=== PATIENT | male | born 1970 | race Caucasian/White ===

== ENCOUNTER 2017-10-15 19:30 | Emergency (ER) | payer OTHER, SELFPAY ==
--- NOTE | 2017-10-15 19:30 | DT_ITS ---
This patient was seen during an EMR downtime October 13, 2017 - October 20, 2017. This patient may have a combination of paper and electronic documentation or all paper documentation. All documentation is viewable within the e-chart portion of [facility] for each patient visit.
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
== END 2017-10-15 21:45 | disposition home or self-care (01) ==
LOC: ED 10-16 15:19
PROVIDERS: Emergency Provider Emergency Medicine
DX: S09.90XA Unspecified injury of head, initial encounter (principal); S46.912A Strain of unspecified muscle, fascia and tendon at shoulder and upper arm level, left arm, initial encounter; V49.40XA Driver injured in collision with unspecified motor vehicles in traffic accident, initial encounter; Y93.89 Activity, other specified; Y92.410 Unspecified street and highway as the place of occurrence of the external cause; E11.9 Type 2 diabetes mellitus without complications; I25.2 Old myocardial infarction; Z79.4 Long term (current) use of insulin; Z79.84 Long term (current) use of oral hypoglycemic drugs; Z79.899 Other long term (current) drug therapy
CPT/HCPCS: 70450; 72125; 73030; 99283

== ENCOUNTER → 2023-09-26 | Outpatient (CLI) | payer OTHER, SELFPAY ==
[2023-09-26 12:10] LABS: Absolute Lymphocyte Count 1.24 X10^3/uL (0.83-4.51); Basophil# 0.04 X10^3/uL; Basophil% 0.7 % (0-1); Eosinophils% 1.7 % (0-5); Hematocrit 45.2 % (40-54); Hemoglobin 14.9 g/dL (13.0-16.5); Lymphocyte # 1.24 X10^3/ul (0.83-4.51); Lymphocyte % 20.8 % (19-41); Mean Corpuscular Hgb 28.6 pg (27.0-32.0); Mean Corpuscular Volume 86.8 fL (80-94); Mean Platelet Vol. 10.1 fl (6.2-12.0); Monocyte% 10.1 % (0-10); NRBC Flagged by Analyzer 0 % (0-5); Neutrophil # 3.95 X10^3/uL (2.7-7.7); Neutrophil % 66.4 % (47-70); Platelet Count 313 K/mm3 (150-450); RBC Distribution Width CV 12.7 % (11.6-14.6); Red Blood Count 5.21 M/mm3 (4.6-6.2)
[2023-09-26 13:09] LABS: Vitamin D,25 Hydroxy 36.2 ng/mL
[2023-09-26 13:13] LABS: AST(SGOT) 16 U/L (15-37); Alanine Aminotransfer ALT/SGPT 43 U/L (16-61); Albumin, Serum 3.9 g/dL (3.2-5.0); Alkaline Phosphatase 113 U/L (45-117); Anion Gap 5 (5-15); BUN 15 mg/dL (7-18); BUN/Creat Ratio 13.8 RATIO (10-20); Calcium,Total 9.8 mg/dL (8.5-10.1); Chloride 102 mmol/L (98-107); Cholesterol 197 mg/dL (200); Creatinine, Serum 1.09 mg/dL (0.70-1.30); EST Glomerular Filtration Rate 75 mL/min (>60); Est Glom Filt Rate - Afr Amer 90 mL/min (>60); Globulin 3.8 g/dL (2.2-4.2); Glucose 407 mg/dL (74-106); High Density Lipoprotein 40 mg/dL; Potassium 4.6 mmol/L (3.5-5.1); Protein, Total 7.7 g/dL (6.4-8.2); Sodium Level 135 mmol/L (136-145); Thyroid Stim Hormone (TSH) 1.32 uIU/mL (0.358-3.74); Triglycerides 226 mg/dL; Very Low Density Lipoprotein 45 mg/dL (5-40)
== END | disposition home or self-care (01) ==
PROVIDERS: Visit Provider Family Medicine
DX: E11.8 Type 2 diabetes mellitus with unspecified complications (principal)
CPT/HCPCS: 36415; 80053; 80061; 82306; 84443; 85025

== ENCOUNTER 2023-10-07 09:51 | Outpatient (RCR) | payer MEDICAID, SELFPAY ==
[2023-10-07 10:09] VITALS: BP 146/86; PULSE 87; RESP 18; TEMP 36.2; BMI 30.9
--- NOTE | 2023-10-07 11:08 | PCM.WC.HP ---
History of Present Illness Date of Service: 10/07/23 Progress of Wound: presents with chronic diabetic, neuropathic ulcerations to right heel and right hallux. present for months, unchanging. Denies any fever, chills, nausea, vomiting, chest pain, calf pain or shortness of breath. Patient has attempted no treatments and relates that he had a long history of poorly controlled type II diabetes with loss of sensation to his feet. No other complaints today. [facility] Social History Smoking Status: Never smoker ROS Constitutional Constitutional: Denies change in weight, chills or headache(s) Eyes Eyes: Denies acute decrease in peripheral vision, change in eye color or change in vision ENT HEENT: Denies bleeding gums, change in voice or epistaxis Cardiovascular Cardiovascular: Denies abdominal edema, abdominal pain or chest pain at rest Respiratory/Chest Respiratory/Chest: Denies change in phlegm color, chest congestion or dyspnea Gastrointestinal Gastrointestinal: Denies belching, bloating or constipation Genitourinary Genitourinary: Denies anuria, burning urination or difficulty with ejaculations Musculoskeletal Musculoskeletal: Denies atrophy, back pain or limited range of motion Vital Signs Vital Signs Vital Signs: 10/07/23 10:09 Temperature 97.2 F L Temperature Source Temporal Pulse Rate 87 Respiratory Rate 18 Blood Pressure 146/86 H Blood Pressure Mean 106 Blood Pressure Source Monitor Blood Pressure Position Semi-Fowlers Blood Pressure Location Left Arm Oxygen Delivery Method Room Air Weight Weight: 106.594 kg Body Mass Index (BMI) 30.9 Physical Exam Narrative Vascular: Dorsalis Pedis and Posterior Tibial Pulses 2/4 to bilateral feet. Atrophic skin changes noted. Neurologic: absent light touch/protective sensation to bilateral lower extremities. Dermatologic: Full thickness wound to subcutaneous tissue to right plantar hallux and heel with periowund callus. Pre/post debridement measurements documented in nursing notes. Wound demonstrates clean, bleeding/granular base with no acute signs of infection. Musculoskeletal: Right hallux 1st MPJ decreased dorsiflexion <5 degrees - this is a wound forming deformity. Muscular strength full. Debridement Note Debridement Note Post-Debridement Measurements and Additional Note: Post-Debridement Measurements/Treatment MARISOL - Nurse 1 - General Ulcer Assessment Start: 10/07/23 10:09 Freq: Status: Active Protocol: WC.LOWEXT Activity Type Activity Date Activity User E-sign Co-sign Detail Recorded Client Recorded Date Recorded By Document 10/07/23 10:09 KW wound center 10/07/23 10:31 KW 10/07/23 10:09 WC - Today's Visit Information Type of service Initial Visit Arrival Mode Ambulatory Patient Identification Verified (Name & Yes ) Finger Stick Blood Sugar(mg/dl) (if 213 indicated): Blood Sugar Stated by Patient Height and Weight Height 6 ft 1 in Weight 106.594 kg Weight in Pounds 235.0 lbs Weight Measurement Method Estimated by Patient Body Mass Index (BMI) 30.9 BMI Classification Obese BSA - Mark 2.30 Vital Signs Temperature (97.8 F-99.1 F) 97.2 F L Temperature Source Temporal Pulse Rate (60-100) 87 Pulse Location Monitor Respiratory Rate (12-18) 18 Respiratory rate source Observation Oxygen Delivery Method Room Air Blood Pressure (90/60-120/80) 146/86 H Blood Pressure Mean 106 Source Monitor Position Semi-Fowlers Blood Pressure Location Left Arm History Since Last Visit- (Skip if this is Patient's initial visit) Left Footwear Regular Shoe Right Footwear Regular Shoe Pain Scale: 0-10 Numeric Is Patient Pain Free? No RT FOOT -Description Sharp -Intensity 4 -Alleviating Factors/Interventions Medication, Inactivity/ Resting Lower Extremity Assessment/ Foot Assessment/ Toe Nail Assessment Right -Posterior Tibial Palpable Yes -Dorsalis Pedis Palpable Yes -Extremity Color Normal -Hair Growth on Legs Yes -Hair Growth on Toes No -Temperature of Extremity Cool -Capillary Refill Less than 3 Seconds -Thick Yes -Discolored Yes -Deformed Yes -Improper Length & Hygeine No Communication Assessment Preferred language [place] [employer] Required No Able to Read Yes Able to Write Yes Communication Tools None Caregiver Communication Skills No Impairment Impairment Right Hearing Abillity Normal Left Hearing Abillity Normal Visual Assistive Devices None Teaching Assessment Preferences Verbal,Written, Demonstration Barriers to Learning None Readiness To Learn Excellent Willingness to Engage in Self Management High Activies Readiness to Engage in Self Management High Activities Anxiety Level Calm Cooperation Cooperative Perception Coherent Interest in Health Problem Asks Questions Education Importance Acknowledges Need Does Patient Smoke tobacco or other Yes substances Smoking Status Never smoker Is Patient Diabetic Yes Functional Assessment Recent Decline in Ability to Perform Denies Any Declines Culture/Faith/Career Development Director Cultural/Faith Needs that may affect No Treatment Plan Would you allow our hospital tool and die repair to No meet you for the purpose of spiritual/ emotional support? Career Development Director to contact place of episcopalian No WC - Nurse 1 - General Ulcer Measurement Start: 10/07/23 10:09 Freq: Status: Active Protocol: Activity Type Activity Date Activity User E-sign Co-sign Detail Recorded Client Recorded Date Recorded By Document 10/07/23 10:31 KW wound center 10/07/23 10:36 KW 10/07/23 10:31 Wound Center Nurse 1 #2 RT HEEL -Current Size (cm) - Length 0.7 -Current Size (cm) - Width 0.8 -Current Size (cm) - Depth 0.4 -Total Square Cm 0.56 -Date of Last Picture (Recall this 10/07/23 field) -Undermining/Tunneling Yes -Undermining/Tunneling Starts (O'clock 9 ) -Undermining/Tunneling Ends (O'clock) 2 -Maximum Distance (cm) 0.2 -Exudate Amt Small -Exudate Type Serosanguineous -Wound Margin Thickened -Granulation Amt Large (67-100%) -Granulation Quality [place] -Texture (Lashell-wound Skin Appearance) Assessed,Callus -Moisture (Lashell-wound Skin Appearance) Assessed,Dry/ Scaly -Color (Lashell-wound Skin Appearance) Assessed -Temperature (Lashell-wound Skin No Abnormality Appearance) (Pt Warm) -Tenderness on Palpation (Lashell-wound No Skin Appearance) -Ulcer Cleansing Soap and Water -Foul Odor after Cleansing No -Anesthetic Used 5% Lidocaine Gel #1 RT GREAT TOE -Current Size (cm) - Length 0.4 -Current Size (cm) - Width 0.7 -Current Size (cm) - Depth 0.2 -Total Square Cm 0.28 -Date of Last Picture (Recall this 10/07/23 field) -Undermining/Tunneling No -Exudate Amt Small -Exudate Type Serosanguineous -Wound Margin Thickened -Granulation Amt Large (67-100%) -Granulation Quality [place] -Slough/Fibrin No -Texture (Lashell-wound Skin Appearance) Assessed,Callus -Moisture (Lashell-wound Skin Appearance) Assessed -Color (Lashell-wound Skin Appearance) Assessed -Temperature (Lashell-wound Skin No Abnormality Appearance) (Pt Warm) -Tenderness on Palpation (Lashell-wound No Skin Appearance) -Ulcer Cleansing Soap and Water -Foul Odor after Cleansing No -Anesthetic Used 5% Lidocaine Gel Right Calf (cm) 43 Right Ankle (cm) 23.1 WC - Nurse 2 - General Ulcer CM Notes Start: 10/07/23 10:09 Freq: Status: Active Protocol: Activity Type Activity Date Activity User E-sign Co-sign Detail Recorded Client Recorded Date Recorded By Document 10/07/23 10:57 DS [id number] 10/07/23 11:07 DS 10/07/23 10:57 Wound Center Nurse 2 #2 RT HEEL -Time 10:58 -Correct Patient Yes -Correct Side, Site, Position Yes -Correct Procedure Yes -Procedure Performed Yes -Type of Procedure Debridement -Clinical Debridement Subcutaneous -Tissue Removed Subcutaneous -Post Debridement (cm) - Length 1.4 -Post Debridement (cm) - Width 1.5 -Post Debridement (cm) - Depth 0.4 -Total Square (Post) (cm) 2.10 -Area of Debridement (cm) - Length 1.4 -Area of Debridement (cm) - Width 1.5 -Total Square (Area) (cm) 2.10 -Tunneling No -Undermining/Tunneling No -Circular Undermining No -Wound/Ulcer Outcome Not Healed -Ulcer Cleansing Rinsed/ Irrigated with Saline -Bleeding Controlled with Pressure -Treatment Response Procedure Tolerated Well -Debridement - Subq, 1st 20sq cm No #1 RT GREAT TOE -Time 10:57 -Correct Patient Yes -Correct Side, Site, Position Yes -Correct Procedure Yes -Procedure Performed Yes -Type of Procedure Debridement -Clinical Debridement Subcutaneous -Tissue Removed Subcutaneous -Post Debridement (cm) - Length 0.8 -Post Debridement (cm) - Width 0.8 -Post Debridement (cm) - Depth 0.2 -Total Square (Post) (cm) 0.64 -Area of Debridement (cm) - Length 0.8 -Area of Debridement (cm) - Width 0.8 -Total Square (Area) (cm) 0.64 -Tunneling No -Undermining/Tunneling No -Circular Undermining No -Wound/Ulcer Outcome Not Healed -Ulcer Cleansing Rinsed/ Irrigated with Saline -Bleeding Controlled with Pressure -Treatment Response Procedure Tolerated Well -Debridement - Subq, 1st 20sq cm Yes Pain Scale: 0-10 Numeric Is Patient Pain Free? Yes Assessment/Plan Assessment/Plan (1) Type 2 diabetes mellitus with diabetic polyneuropathy: CODE(S): E11.42 - Type 2 diabetes mellitus with diabetic polyneuropathy QUALIFIERS: Diabetes mellitus terminal carman insulin use: with terminal carman use Qualified Code(s): E11.42 - Type 2 diabetes mellitus with diabetic polyneuropathy; Z79.4 - group home (current) use of insulin PLAN: Exam performed Patient awaiting arterial studies on of next week discussed tight blood glucose regulation Today right foot wounds x2 were excisionally debrided down to and including level of subcutaneous tissue using a #15 blade without incident of all non-viable tissue. No anesthesia due to neuropathy. Hemostasis obtained with light compression. Patient tolerated procedure well. Pre/post debridement measurements documented in nursing notes. dressed with silver alginate/DSD appled total contact cast follow up in 1 week (2) Hallux rigidus, right foot: CODE(S): M20.21 - Hallux rigidus, right foot (3) Non-pressure chronic ulcer of other part of right foot with fat layer exposed: CODE(S): L97.512 - Non-pressure chronic ulcer of other part of right foot with fat layer exposed
--- NOTE | 2023-10-09 12:06 | WC ---
10/07/2023 (I) RIGHT GREAT TOE
== END 2023-10-10 23:59 | disposition home or self-care (01) ==
LOC: WC 09:51
PROVIDERS: Referring Provider Podiatrist; Visit Provider Podiatrist
DX: E11.42 Type 2 diabetes mellitus with diabetic polyneuropathy (principal); E11.621 Type 2 diabetes mellitus with foot ulcer; L97.512 Non-pressure chronic ulcer of other part of right foot with fat layer exposed; L97.412 Non-pressure chronic ulcer of right heel and midfoot with fat layer exposed; Z79.4 Long term (current) use of insulin; M20.21 Hallux rigidus, right foot
CPT/HCPCS: 11042; 99213; G0463

== ENCOUNTER → 2023-10-14 | Outpatient (CLI) | payer MEDICAID, SELFPAY ==
--- NOTE | 2023-10-14 11:21 | PN.PCM_ITS ---
History of Present Illness Date of Service: 10/14/23 Progress of Wound: presents with chronic diabetic, neuropathic ulcerations to right heel and right hallux. present for months, unchanging. Denies any fever, chills, nausea, vomiting, chest pain, calf pain or shortness of breath. Patient has attempted no treatments and relates that he had a long history of poorly controlled type II diabetes with loss of sensation to his feet. No other complaints today. Physical Exam Narrative Vascular: Dorsalis Pedis and Posterior Tibial Pulses 2/4 to bilateral feet. Atrophic skin changes noted. Neurologic: absent light touch/protective sensation to bilateral lower extremities. Dermatologic: Full thickness wound to subcutaneous tissue to right plantar hallux and heel with periowund callus. Pre/post debridement measurements documented in nursing notes. Wound demonstrates clean, bleeding/granular base with no acute signs of infection. Musculoskeletal: Right hallux 1st MPJ decreased dorsiflexion <5 degrees - this is a wound forming deformity. Muscular strength full. Assessment/Plan Assessment/Plan (1) Type 2 diabetes mellitus with diabetic polyneuropathy: CODE(S): E11.42 - Type 2 diabetes mellitus with diabetic polyneuropathy QUALIFIERS: Diabetes mellitus termite control representative insulin use: with chcf use Qualified Code(s): E11.42 - Type 2 diabetes mellitus with diabetic polyneuropathy; Z79.4 - nursing home (current) use of insulin PLAN: Exam performed Patient awaiting arterial studies today discussed tight blood glucose regulation Today right foot wounds x2 were excisionally debrided down to and including level of subcutaneous tissue using a #15 blade without incident of all non- viable tissue. No anesthesia due to neuropathy. Hemostasis obtained with light compression. Patient tolerated procedure well. Pre/post debridement measurements documented in nursing notes. dressed with silver alginate/DSD await total contact casting 1 week due to arterial studies offload right foot with surgical shoe follow up in 1 week (2) Hallux rigidus, right foot: CODE(S): M20.21 - Hallux rigidus, right foot (3) Non-pressure chronic ulcer of other part of right foot with fat layer exposed: CODE(S): L97.512 - Non-pressure chronic ulcer of other part of right foot with fat layer exposed
--- NOTE | 2023-10-14 14:07 | ART_ITS ---
Reason For Study: PVD Procedure A bilateral lower extremity continuous wave Doppler with analog waveform analysis,segmental pressures,and ankle brachial indexes without exercise. Left Segmental Pressures Left brachial= 132mmHg. Left posterior tibial artery = 175mmHg. Left dorsalis pedis artery = 179mmHg. Left digit = 158 mmHg. The left dorsalis pedis waveforms are triphasic. The left posterior tibial artery waveforms are triphasic. Right Segmental Pressures Right brachial= 129mmHg. Right posterior tibial artery = 194mmHg. Right dorsalis pedis artery = 175mmHg. Right digit = 202 mmHg. The right dorsalis pedis waveforms are triphasic. The right posterior tibial artery waveforms are triphasic. Indices The right ankle brachial index by the dorsalis pedis is 1.33. The right ankle brachial index by the posterior tibial artery is 1.47. The right digital-brachial index is 1.53. The left ankle brachial index by the dorsalis pedis is 1.36. The left ankle brachial index by the posterior tibial artery is 1.33. The left digital-brachial index is 1.2. VL/Lower Ext Art Exam w/o Exercis Interpretation Summary Right LE 1.47, may be artificially elevated. TBI and Doppler/PVR waveforms of the right leg normal at rest. Left LE 1.36, normal. TBI and Doppler/PVR waveforms of the left leg normal at rest. Ordering Physician: Alessandro Carreno Referring Physician: ALESSANDRO CARRENO DPM Performed By: Dayne Spencer RVDebora
== END | disposition home or self-care (01) ==
PROVIDERS: PCP Family Medicine; Referring Provider Podiatrist; Visit Provider Podiatrist
DX: I73.9 Peripheral vascular disease, unspecified (principal)
CPT/HCPCS: 93923

== ENCOUNTER 2023-11-04 10:45 | Outpatient (RCR) | payer MEDICAID, SELFPAY ==
[2023-10-11 01:25] VITALS: BP 146/86; PULSE 87; RESP 18; TEMP 36.2; BMI 30.9
[2023-10-14 10:57] VITALS: BP 130/90; PULSE 92; RESP 18; TEMP 36.2; BMI 30.9
[2023-10-21 11:11] VITALS: BP 149/82; PULSE 85; RESP 18; TEMP 36.6; BMI 30.9
--- NOTE | 2023-10-21 11:38 | PN.PCM_ITS ---
History of Present Illness Date of Service: 10/21/23 Progress of Wound: presents with chronic diabetic, neuropathic ulcerations to right heel and right hallux. present for months, unchanging. Denies any fever, chills, nausea, vomiting, chest pain, calf pain or shortness of breath. Patient has attempted no treatments and relates that he had a long history of poorly controlled type II diabetes with loss of sensation to his feet. No other complaints today. Patient current notes improved blood sugar control today and has been compliant with wound care treatments. Objective Data Objective Data Vital Signs: Vital Signs Temp Pulse Resp BP O2 Del Method 97.8 F 85 18 149/82 H Room Air 10/21/23 11:11 10/21/23 11:11 10/21/23 11:11 10/21/23 11:11 10/14/23 10:57 Oxygen Delivery Method Room Air Weight: 106.594 kg Body Mass Index (BMI) 30.9 Physical Exam Narrative Vascular: Dorsalis Pedis and Posterior Tibial Pulses 2/4 to bilateral feet. Atrophic skin changes noted. Neurologic: absent light touch/protective sensation to bilateral lower extremities. Dermatologic: Full thickness wound to subcutaneous tissue to right plantar hallux and heel with periowund callus. Pre/post debridement measurements documented in nursing notes. Wound demonstrates clean, bleeding/granular base with no acute signs of infection. Musculoskeletal: Right hallux 1st MPJ decreased dorsiflexion <5 degrees - this is a wound forming deformity. Muscular strength full. Debridement Note Debridement Note Post-Debridement Measurements and Additional Note: Post-Debridement Measurements/Treatment WC - Nurse 1 - General Ulcer Assessment Start: 10/14/23 10:56 Freq: Status: Active Protocol: [email or web address] Activity Type Activity Date Activity User E-sign Co-sign Detail Recorded Client Recorded Date Recorded By Document 10/14/23 10:57 KW wound center 10/14/23 11:08 KW Document 10/21/23 11:11 RB wound 10/21/23 11:14 RB 10/14/23 10/21/23 10:57 11:11 - Today's Visit Information Type of service Follow-up Visit Follow-up Visit (Physician/ROLLER HELPER (Physician/ROLLER HELPER ) ) Arrival Mode Ambulatory Ambulatory Transfer Assistance None Patient Identification Verified (Name & Yes Yes ) Patient Requires Transmission-Based No Precautions Height and Weight Body Mass Index (BMI) 30.9 30.9 BMI Classification Obese Obese Vital Signs Temperature (97.8 F-99.1 F) 97.1 F L 97.8 F Temperature Source Temporal Temporal Pulse Rate (60-100) 92 85 Pulse Location Monitor Monitor Respiratory Rate (12-18) 18 18 Respiratory rate source Observation Observation Oxygen Delivery Method Room Air Blood Pressure (90/60-120/80) 130/90 H 149/82 H Blood Pressure Mean (mm Hg) 103 104 Source Monitor Monitor Position Semi-Fowlers Semi-Fowlers Blood Pressure Location Left Arm Left Arm History Since Last Visit- (Skip if this is Patient's initial visit) Have you changed medications since your No No last visit? Any new allergies or adverse reactions No No Had a fall/change in ADL's that may No No increase risk of falls Signs or symptoms of abuse and/or No No neglect since last visit Have you been in the hospital since your No No last visit? Has dressing in place as prescribed Yes Yes Has compression in place as prescribed Yes Has offloadiing in place as prescribed Yes No Experienced any changes in pain level or No No management Left Footwear Regular Shoe Right Footwear Total Contact Cast Pain Scale: 0-10 Numeric Is Patient Pain Free? Yes No Headache -Description Aching -Intensity 5 -Duration (hours) Acute -Pain Behavior Irritability -Pain Aggravating Factors ADL's -Alleviating Factors/Interventions Medication -Effectiveness of Alleviating Factor/ Minimally Intervention effective WC - Nurse 1 - General Ulcer Measurement Start: 10/14/23 10:56 Freq: Status: Active Protocol: Activity Type Activity Date Activity User E-sign Co-sign Detail Recorded Client Recorded Date Recorded By Document 10/14/23 10:57 KW wound center 10/14/23 11:08 KW Document 10/21/23 11:11 RB wound 10/21/23 11:14 RB 10/14/23 10/21/23 10:57 11:11 Wound Center Nurse 1 #2 RT HEEL -Combined with other wound No -Current Size (cm) - Length 0.7 0.5 -Current Size (cm) - Width 0.7 0.5 -Current Size (cm) - Depth 0.3 0.4 -Total Square Cm 0.49 0.25 -Tunneling No -Undermining/Tunneling No -Circular Undermining No -Exudate Amt Medium Medium -Exudate Type Serosanguineous Serosanguineous -Wound Margin Thickened & Thickened & Rolled Under Rolled Under -Granulation Amt Medium (34-66%) Medium (34-66%) -Granulation Quality Jeannette Jeannette -Slough/Fibrin Yes -Necrosis Amt Medium (34-66%) -Necrotic Tissue Type Adherent Slough -Structure Exposed N/A -Texture (Lashell-wound Skin Appearance) Assessed Assessed -Moisture (Lashell-wound Skin Appearance) Assessed Assessed -Color (Lashell-wound Skin Appearance) Assessed Assessed -Temperature (Lashell-wound Skin No Abnormality No Abnormality Appearance) (Pt Warm) (Pt Warm) -Tenderness on Palpation (Lashell-wound No No Skin Appearance) -Ulcer Cleansing Soap and Water Wound Cleanser -Foul Odor after Cleansing No -Anesthetic Used 5% Lidocaine 5% Lidocaine Gel Gel #1 RT GREAT TOE -Combined with other wound No -Current Size (cm) - Length 0.3 0.1 -Current Size (cm) - Width 0.4 0.1 -Current Size (cm) - Depth 0.2 0.1 -Total Square Cm 0.12 0.01 -Tunneling No -Undermining/Tunneling No -Circular Undermining No -Exudate Amt Medium -Exudate Type Serosanguineous -Wound Margin Thickened & Distinct, Rolled Under Outline Attached -Granulation Amt Medium (34-66%) Medium (34-66%) -Granulation Quality Jeannette Jeannette -Slough/Fibrin Yes -Necrosis Amt Medium (34-66%) -Necrotic Tissue Type Adherent Slough -Structure Exposed N/A -Texture (Lashell-wound Skin Appearance) Assessed Assessed,Callus -Moisture (Lashell-wound Skin Appearance) Assessed Assessed -Color (Lashell-wound Skin Appearance) Assessed Assessed -Temperature (Lashell-wound Skin No Abnormality No Abnormality Appearance) (Pt Warm) (Pt Warm) -Tenderness on Palpation (Lashell-wound No No Skin Appearance) -Ulcer Cleansing Soap and Water Wound Cleanser -Foul Odor after Cleansing No No -Anesthetic Used 5% Lidocaine 5% Lidocaine Gel Gel Lower Limb Edema Present Yes Right Calf (cm) 43 Right Ankle (cm) 23.5 WC - Nurse 2 - General Ulcer CM Notes Start: 10/14/23 10:56 Freq: Status: Active Protocol: Activity Type Activity Date Activity User E-sign Co-sign Detail Recorded Client Recorded Date Recorded By Document 10/14/23 11:17 [id number] [id number] 10/14/23 11:20 JF Document 10/21/23 11:23 [id number] [id number] 10/21/23 11:28 JF 10/14/23 10/21/23 11:17 11:23 Wound Center Nurse 2 #2 RT HEEL -Time 11:17 11:26 -Correct Patient Yes Yes -Correct Side, Site, Position Yes Yes -Correct Procedure Yes Yes -Procedure Performed Yes Yes -Type of Procedure Debridement Debridement -Clinical Debridement Subcutaneous Subcutaneous -Tissue Removed Subcutaneous Subcutaneous -Post Debridement (cm) - Length 0.9 0.5 -Post Debridement (cm) - Width 0.9 0.6 -Post Debridement (cm) - Depth 0.2 0.2 -Total Square (Post) (cm) 0.81 0.30 -Area of Debridement (cm) - Length 0.9 0.5 -Area of Debridement (cm) - Width 0.9 0.6 -Total Square (Area) (cm) 0.81 0.30 -Tunneling No No -Undermining/Tunneling No No -Circular Undermining No No -Wound/Ulcer Outcome Not Healed Not Healed -Ulcer Cleansing Rinsed/ Rinsed/ Irrigated with Irrigated with Saline Saline -Foul Odor after Cleansing No No -Bioengineered Tissue No No -Bleeding Controlled with Pressure Pressure -Treatment Response Procedure Procedure Tolerated Well Tolerated Well -Offloading Yes Yes -Type of Offloading Surgical Shoe Surgical Shoe -Debridement - Subq, 1st 20sq cm Yes No #1 RT GREAT TOE -Time 11:18 11:26 -Correct Patient Yes Yes -Correct Side, Site, Position Yes Yes -Correct Procedure Yes Yes -Procedure Performed Yes Yes -Type of Procedure Debridement Debridement -Clinical Debridement Subcutaneous Subcutaneous -Tissue Removed Subcutaneous Subcutaneous -Post Debridement (cm) - Length 0.2 0.2 -Post Debridement (cm) - Width 0.5 0.5 -Post Debridement (cm) - Depth 0.1 0.1 -Total Square (Post) (cm) 0.10 0.10 -Area of Debridement (cm) - Length 0.2 0.2 -Area of Debridement (cm) - Width 0.5 0.5 -Total Square (Area) (cm) 0.10 0.10 -Tunneling No No -Undermining/Tunneling No No -Circular Undermining No No -Wound/Ulcer Outcome Not Healed Not Healed -Ulcer Cleansing Rinsed/ Rinsed/ Irrigated with Irrigated with Saline Saline -Foul Odor after Cleansing No No -Bioengineered Tissue No No -Bleeding Controlled with Pressure Pressure -Treatment Response Procedure Procedure Tolerated Well Tolerated Well -Offloading Yes Yes -Type of Offloading Surgical Shoe Surgical Shoe -Debridement - Subq, 1st 20sq cm No Yes Pain Scale: 0-10 Numeric Is Patient Pain Free? Yes Yes - Nurse 3 - General Ulcer D/C NN Start: 10/14/23 10:56 Freq: Status: Active Protocol: Activity Type Activity Date Activity User E-sign Co-sign Detail Recorded Client Recorded Date Recorded By Document 10/14/23 11:48 KW wound center 10/14/23 11:49 10/14/23 11:48 Wound Care Center Nurse 3 #2 RT HEEL -Ulcer Cleansing Rinsed/ Irrigated with Saline -Primary Dressing Applied Silvercel -Primary Dressing Covered/Secured with Dry Gauze & Roll Gauze, Secured with Tape -Silvercel 1 #1 RT GREAT TOE -Primary Dressing Covered/Secured with Dry Gauze Right -Tubular Bandage Double Layer -Size of Tubigrip Used Size E -Size E ($) 2 Pain Scale: 0-10 Numeric Is Patient Pain Free? Yes WC - Visit Discharge Discharge Condition Stable Ambulatory Status Ambulatory Transportation Private Auto Medication Reconcilliation completed & No provided to patient/care provider Clinical Summary of Care Provided Yes Assessment/Plan Assessment/Plan (1) Type 2 diabetes mellitus with diabetic polyneuropathy: CODE(S): E11.42 - Type 2 diabetes mellitus with diabetic polyneuropathy QUALIFIERS: Diabetes mellitus moth exterminator insulin use: with moth exterminator use Qualified Code(s): E11.42 - Type 2 diabetes mellitus with diabetic polyneuropathy; Z79.4 - long term care social worker (current) use of insulin PLAN: Exam performed Blood sugar control improved. Wound significantly improved today. Today right foot wounds x2 were excisionally debrided down to and including level of subcutaneous tissue using a #15 blade without incident of all non- viable tissue. No anesthesia due to neuropathy. Hemostasis obtained with light compression. Patient tolerated procedure well. Pre/post debridement measurements documented in nursing notes. dressed with silver alginate/DSD Arterial studies demonstrate calcified vessels with no evidence of arterial occlusive disease. Discussed return to total contact casting. Patient wishes to defer and wishes to continue with surgical shoe on right. I discussed that this may lead to delays in wound healing but about high risk of a life or limb threatening infection. Patient understands. follow up in 1 week (2) Hallux rigidus, right foot: CODE(S): M20.21 - Hallux rigidus, right foot (3) Non-pressure chronic ulcer of other part of right foot with fat layer exposed: CODE(S): L97.512 - Non-pressure chronic ulcer of other part of right foot with fat layer exposed
[2023-10-28 11:00] VITALS: BP 139/88; PULSE 88; RESP 18; TEMP 36.1; BMI 30.9
--- NOTE | 2023-10-28 11:38 | PCM.WC.PN ---
History of Present Illness Date of Service: 10/28/23 Progress of Wound: presents with chronic diabetic, neuropathic ulcerations to right heel and right hallux. present for months, unchanging. Denies any fever, chills, nausea, vomiting, chest pain, calf pain or shortness of breath. Patient has attempted no treatments and relates that he had a long history of poorly controlled type II diabetes with loss of sensation to his feet. No other complaints today. Patient current notes improved blood sugar control today and has been compliant with wound care treatments. Objective Data Objective Data Vital Signs: Vital Signs Temp Pulse Resp BP O2 Del Method 97 F L 88 18 139/88 H Room Air 10/28/23 11:00 10/28/23 11:00 10/28/23 11:00 10/28/23 11:00 10/14/23 10:57 Oxygen Delivery Method Room Air Weight: 106.594 kg Body Mass Index (BMI) 30.9 Physical Exam Narrative Vascular: Dorsalis Pedis and Posterior Tibial Pulses 2/4 to bilateral feet. Atrophic skin changes noted. Neurologic: absent light touch/protective sensation to bilateral lower extremities. Dermatologic: Full thickness wound to subcutaneous tissue to right plantar hallux and heel with periowund callus. Pre/post debridement measurements documented in nursing notes. Wound demonstrates clean, bleeding/granular base with no acute signs of infection. Musculoskeletal: Right hallux 1st MPJ decreased dorsiflexion <5 degrees - this is a wound forming deformity. Muscular strength full. Debridement Note Debridement Note Post-Debridement Measurements and Additional Note: Post-Debridement Measurements/Treatment WC - Nurse 1 - General Ulcer Assessment Start: 10/14/23 10:56 Freq: Status: Active Protocol: [email or web address] Activity Type Activity Date Activity User E-sign Co-sign Detail Recorded Client Recorded Date Recorded By Document 10/14/23 10:57 KW wound center 10/14/23 11:08 KW Document 10/21/23 11:11 RB wound 10/21/23 11:14 RB Document 10/28/23 11:00 RB wound 10/28/23 11:02 RB 10/14/23 10/21/23 10/28/23 10:57 11:11 11:00 WC - Today's Visit Information Type of service Follow-up Visit Follow-up Visit Follow-up Visit (Physician/SUPERINTENDENT COMMISSARY (Physician/SUPERINTENDENT COMMISSARY (Physician/SUPERINTENDENT COMMISSARY ) ) ) Arrival Mode Ambulatory Ambulatory Ambulatory Transfer Assistance None None Patient Identification Verified (Name & Yes Yes Yes ) Patient Requires Transmission-Based No No Precautions Height and Weight Body Mass Index (BMI) 30.9 30.9 30.9 BMI Classification Obese Obese Obese Vital Signs Temperature (97.8 F-99.1 F) 97.1 F L 97.8 F 97 F L Temperature Source Temporal Temporal Temporal Pulse Rate (60-100) 92 85 88 Pulse Location Monitor Monitor Monitor Respiratory Rate (12-18) 18 18 18 Respiratory rate source Observation Observation Observation Oxygen Delivery Method Room Air Blood Pressure (90/60-120/80) 130/90 H 149/82 H 139/88 H Blood Pressure Mean (mm Hg) 103 104 105 Source Monitor Monitor Monitor Position Semi-Fowlers Semi-Fowlers Semi-Fowlers Blood Pressure Location Left Arm Left Arm Left Arm History Since Last Visit- (Skip if this is Patient's initial visit) Have you changed medications since your No No No last visit? Any new allergies or adverse reactions No No No Had a fall/change in ADL's that may No No No increase risk of falls Signs or symptoms of abuse and/or No No No neglect since last visit Have you been in the hospital since your No No No last visit? Has dressing in place as prescribed Yes Yes Yes Has compression in place as prescribed Yes Yes Has offloadiing in place as prescribed Yes No No Experienced any changes in pain level or No No No management Left Footwear Regular Shoe Right Footwear Total Contact Cast Pain Scale: 0-10 Numeric Is Patient Pain Free? Yes No Yes Headache -Description Aching -Intensity 5 -Duration (hours) Acute -Pain Behavior Irritability -Pain Aggravating Factors ADL's -Alleviating Factors/Interventions Medication -Effectiveness of Alleviating Factor/ Minimally Intervention effective WC - Nurse 1 - General Ulcer Measurement Start: 10/14/23 10:56 Freq: Status: Active Protocol: Activity Type Activity Date Activity User E-sign Co-sign Detail Recorded Client Recorded Date Recorded By Document 10/14/23 10:57 KW wound center 10/14/23 11:08 KW Document 10/21/23 11:11 RB wound 10/21/23 11:14 RB Document 10/28/23 11:00 RB wound 10/28/23 11:02 RB 10/14/23 10/21/23 10/28/23 10:57 11:11 11:00 Wound Center Nurse 1 #2 RT HEEL -Combined with other wound No No -Current Size (cm) - Length 0.7 0.5 0.4 -Current Size (cm) - Width 0.7 0.5 0.4 -Current Size (cm) - Depth 0.3 0.4 0.3 -Total Square Cm 0.49 0.25 0.16 -Tunneling No No -Undermining/Tunneling No No -Circular Undermining No No -Exudate Amt Medium Medium Medium -Exudate Type Serosanguineous Serosanguineous Serosanguineous -Wound Margin Thickened & Thickened & Distinct, Rolled Under Rolled Under Outline Attached -Granulation Amt Medium (34-66%) Medium (34-66%) Medium (34-66%) -Granulation Quality Holly Holly Holly -Slough/Fibrin Yes Yes -Necrosis Amt Medium (34-66%) Medium (34-66%) -Necrotic Tissue Type Adherent Slough Adherent Slough -Structure Exposed N/A N/A -Texture (Lashell-wound Skin Appearance) Assessed Assessed Assessed,Callus -Moisture (Lashell-wound Skin Appearance) Assessed Assessed Assessed -Color (Lashell-wound Skin Appearance) Assessed Assessed Assessed -Temperature (Lashell-wound Skin No Abnormality No Abnormality No Abnormality Appearance) (Pt Warm) (Pt Warm) (Pt Warm) -Tenderness on Palpation (Lashell-wound No No No Skin Appearance) -Ulcer Cleansing Soap and Water Wound Cleanser Wound Cleanser -Foul Odor after Cleansing No No -Anesthetic Used 5% Lidocaine 5% Lidocaine 5% Lidocaine Gel Gel Gel #1 RT GREAT TOE -Combined with other wound No No -Current Size (cm) - Length 0.3 0.1 0.1 -Current Size (cm) - Width 0.4 0.1 0.1 -Current Size (cm) - Depth 0.2 0.1 0.1 -Total Square Cm 0.12 0.01 0.01 -Tunneling No No -Undermining/Tunneling No No -Circular Undermining No No -Exudate Amt Medium Small -Exudate Type Serosanguineous Serosanguineous -Wound Margin Thickened & Distinct, Thickened Rolled Under Outline Attached -Granulation Amt Medium (34-66%) Medium (34-66%) Medium (34-66%) -Granulation Quality Holly Holly Holly -Slough/Fibrin Yes Yes -Necrosis Amt Medium (34-66%) Medium (34-66%) -Necrotic Tissue Type Adherent Slough Adherent Slough -Structure Exposed N/A N/A -Texture (Lashell-wound Skin Appearance) Assessed Assessed,Callus Assessed,Callus -Moisture (Lashell-wound Skin Appearance) Assessed Assessed Assessed -Color (Lashell-wound Skin Appearance) Assessed Assessed Assessed -Temperature (Lashell-wound Skin No Abnormality No Abnormality No Abnormality Appearance) (Pt Warm) (Pt Warm) (Pt Warm) -Tenderness on Palpation (Lashell-wound No No No Skin Appearance) -Ulcer Cleansing Soap and Water Wound Cleanser Wound Cleanser -Foul Odor after Cleansing No No No -Anesthetic Used 5% Lidocaine 5% Lidocaine 5% Lidocaine Gel Gel Gel Lower Limb Edema Present Yes Yes Right Calf (cm) 43 42 Right Ankle (cm) 23.5 23 WC - Nurse 2 - General Ulcer CM Notes Start: 10/14/23 10:56 Freq: Status: Active Protocol: Activity Type Activity Date Activity User E-sign Co-sign Detail Recorded Client Recorded Date Recorded By Document 10/14/23 11:17 [id number] [id number] 10/14/23 11:20 Document 10/21/23 11:23 [id number] 10/21/23 11:28 Document 10/28/23 11:03 [id number] 10/28/23 11:07 10/14/23 10/21/23 10/28/23 11:17 11:23 11:03 Wound Center Nurse 2 #2 RT HEEL -Time 11:17 11:26 11:04 -Correct Patient Yes Yes Yes -Correct Side, Site, Position Yes Yes Yes -Correct Procedure Yes Yes Yes -Procedure Performed Yes Yes Yes -Type of Procedure Debridement Debridement Debridement -Clinical Debridement Subcutaneous Subcutaneous Subcutaneous -Tissue Removed Subcutaneous Subcutaneous Subcutaneous -Post Debridement (cm) - Length 0.9 0.5 0.5 -Post Debridement (cm) - Width 0.9 0.6 0.4 -Post Debridement (cm) - Depth 0.2 0.2 0.1 -Total Square (Post) (cm) 0.81 0.30 0.20 -Area of Debridement (cm) - Length 0.9 0.5 0.5 -Area of Debridement (cm) - Width 0.9 0.6 0.4 -Total Square (Area) (cm) 0.81 0.30 0.20 -Tunneling No No No -Undermining/Tunneling No No No -Circular Undermining No No No -Wound/Ulcer Outcome Not Healed Not Healed Not Healed -Ulcer Cleansing Rinsed/ Rinsed/ Rinsed/ Irrigated with Irrigated with Irrigated with Saline Saline Saline -Foul Odor after Cleansing No No No -Bioengineered Tissue No No No -Bleeding Controlled with Pressure Pressure Pressure -Treatment Response Procedure Procedure Procedure Tolerated Well Tolerated Well Tolerated Well -Offloading Yes Yes Yes -Type of Offloading Surgical Shoe Surgical Shoe Total Contact Cast (TCC) - Right ($) -Debridement - Subq, 1st 20sq cm Yes No No #1 RT GREAT TOE -Time 11:18 11:26 11:04 -Correct Patient Yes Yes Yes -Correct Side, Site, Position Yes Yes Yes -Correct Procedure Yes Yes Yes -Procedure Performed Yes Yes Yes -Type of Procedure Debridement Debridement Debridement -Clinical Debridement Subcutaneous Subcutaneous Subcutaneous -Tissue Removed Subcutaneous Subcutaneous Subcutaneous -Post Debridement (cm) - Length 0.2 0.2 0.2 -Post Debridement (cm) - Width 0.5 0.5 0.6 -Post Debridement (cm) - Depth 0.1 0.1 0.1 -Total Square (Post) (cm) 0.10 0.10 0.12 -Area of Debridement (cm) - Length 0.2 0.2 0.2 -Area of Debridement (cm) - Width 0.5 0.5 0.6 -Total Square (Area) (cm) 0.10 0.10 0.12 -Tunneling No No No -Undermining/Tunneling No No No -Circular Undermining No No No -Wound/Ulcer Outcome Not Healed Not Healed Not Healed -Ulcer Cleansing Rinsed/ Rinsed/ Rinsed/ Irrigated with Irrigated with Irrigated with Saline Saline Saline -Foul Odor after Cleansing No No No -Bioengineered Tissue No No No -Bleeding Controlled with Pressure Pressure Pressure -Treatment Response Procedure Procedure Procedure Tolerated Well Tolerated Well Tolerated Well -Offloading Yes Yes Yes -Type of Offloading Surgical Shoe Surgical Shoe Total Contact Cast (TCC) - Right ($) -Debridement - Subq, 1st 20sq cm No Yes Yes Pain Scale: 0-10 Numeric Is Patient Pain Free? Yes Yes Yes WC - Nurse 3 - General Ulcer D/C NN Start: 10/14/23 10:56 Freq: Status: Active Protocol: Activity Type Activity Date Activity User E-sign Co-sign Detail Recorded Client Recorded Date Recorded By Document 10/14/23 11:48 KW wound center 10/14/23 11:49 KW Document 10/21/23 11:40 [id number] 10/21/23 11:41 JF Document 10/28/23 11:13 KW g 10/28/23 11:14 KW 10/14/23 10/21/23 10/28/23 11:48 11:40 11:13 Wound Care Center Nurse 3 #2 RT HEEL -Ulcer Cleansing Rinsed/ Rinsed/ Irrigated with Irrigated with Saline Saline -Foul Odor after Cleansing No -Primary Dressing Applied Silvercel Silvercel Silvercel -Primary Dressing Covered/Secured with Dry Gauze & Dry Gauze, Dry Gauze Roll Gauze, Secured with Secured with Tape Tape -Silvercel 1 1 1 #1 RT GREAT TOE -Ulcer Cleansing Rinsed/ Irrigated with Saline -Foul Odor after Cleansing No -Primary Dressing Applied Silvercel -Primary Dressing Covered/Secured with Dry Gauze Dry Gauze, Dry Gauze Secured with Tape -Silvercel 0 Right -Tubular Bandage Double Layer Double Layer -Size of Tubigrip Used Size E Size D -Size D ($) 2 -Size E ($) 2 Pain Scale: 0-10 Numeric Is Patient Pain Free? Yes Yes Yes WC - Visit Discharge Discharge Condition Stable Stable Stable Ambulatory Status Ambulatory Ambulatory Ambulatory Transportation Private Auto Private Auto Private Auto Medication Reconcilliation completed & No Yes No provided to patient/care provider Clinical Summary of Care Provided Yes Yes Yes Assessment/Plan Assessment/Plan (1) Type 2 diabetes mellitus with diabetic polyneuropathy: CODE(S): E11.42 - Type 2 diabetes mellitus with diabetic polyneuropathy QUALIFIERS: Diabetes mellitus technician terminal and repeater insulin use: with technician terminal and repeater use Qualified Code(s): E11.42 - Type 2 diabetes mellitus with diabetic polyneuropathy; Z79.4 - continuous churn buttermaker (current) use of insulin PLAN: Exam performed Blood sugar control improved. Wound significantly improved today. Today right foot wounds x2 were excisionally debrided down to and including level of subcutaneous tissue using a #15 blade without incident of all non-viable tissue. No anesthesia due to neuropathy. Hemostasis obtained with light compression. Patient tolerated procedure well. Pre/post debridement measurements documented in nursing notes. dressed with silver alginate/DSD Arterial studies demonstrate calcified vessels with no evidence of arterial occlusive disease. Today a total contact cast was applied follow up in 1 week (2) Hallux rigidus, right foot: CODE(S): M20.21 - Hallux rigidus, right foot (3) Non-pressure chronic ulcer of other part of right foot with fat layer exposed: CODE(S): L97.512 - Non-pressure chronic ulcer of other part of right foot with fat layer exposed
[2023-11-04 11:02] VITALS: BP 156/86; PULSE 88; RESP 18; TEMP 35.8; BMI 30.9
--- NOTE | 2023-11-04 11:15 | PN.PCM_ITS ---
History of Present Illness Date of Service: 11/04/23 Progress of Wound: presents with chronic diabetic, neuropathic ulcerations to right heel and right hallux. present for months, unchanging. Denies any fever, chills, nausea, vomiting, chest pain, calf pain or shortness of breath. Patient has attempted no treatments and relates that he had a long history of poorly controlled type II diabetes with loss of sensation to his feet. No other complaints today. Patient current notes improved blood sugar control today and has been compliant with wound care treatments. Objective Data Objective Data Vital Signs: Vital Signs Temp Pulse Resp BP O2 Del Method 96.5 F L 88 18 156/86 H Room Air 11/04/23 11:02 11/04/23 11:02 11/04/23 11:02 11/04/23 11:02 10/14/23 10:57 Oxygen Delivery Method Room Air Weight: 106.594 kg Body Mass Index (BMI) 30.9 Physical Exam Narrative Vascular: Dorsalis Pedis and Posterior Tibial Pulses 2/4 to bilateral feet. Atrophic skin changes noted. Neurologic: absent light touch/protective sensation to bilateral lower extremities. Dermatologic: Full thickness wound to subcutaneous tissue to right plantar hallux and heel with periowund callus. Pre/post debridement measurements documented in nursing notes. Wound demonstrates clean, bleeding/granular base w ith no acute signs of infection. Musculoskeletal: Right hallux 1st MPJ decreased dorsiflexion <5 degrees - this is a wound forming deformity. Muscular strength full. Debridement Note Debridement Note Post-Debridement Measurements and Additional Note: Post-Debridement Measurements/Treatment - Nurse 1 - General Ulcer Assessment Start: 10/14/23 10:56 Freq: Status: Active Protocol: ALEKSANDRA Activity Type Activity Date Activity User E-sign Co-sign Detail Recorded Client Recorded Date Recorded By Document 10/14/23 10:57 KW wound center 10/14/23 11:08 KW Document 10/21/23 11:11 RB wound 10/21/23 11:14 RB Document 10/28/23 11:00 RB wound 10/28/23 11:02 RB Document 11/04/23 11:02 RB wound 11/04/23 11:08 RB 10/14/23 10/21/23 10/28/23 10:57 11:11 11:00 - Today's Visit Information Type of service Follow-up Visit Follow-up Visit Follow-up Visit (Physician/NURSE ORTHO (Physician/NURSE ORTHO (Physician/NURSE ORTHO ) ) ) Arrival Mode Ambulatory Ambulatory Ambulatory Transfer Assistance None None Patient Identification Verified (Name & Yes Yes Yes ) Patient Requires Transmission-Based No No Precautions Finger Stick Blood Sugar(mg/dl) (if indicated): Blood Sugar Height and Weight Body Mass Index (BMI) 30.9 30.9 30.9 BMI Classification Obese Obese Obese Vital Signs Temperature (97.8 F-99.1 F) 97.1 F L 97.8 F 97 F L Temperature Source Temporal Temporal Temporal Pulse Rate (60-100) 92 85 88 Pulse Location Monitor Monitor Monitor Respiratory Rate (12-18) 18 18 18 Respiratory rate source Observation Observation Observation Oxygen Delivery Method Room Air Blood Pressure (90/60-120/80) 130/90 H 149/82 H 139/88 H Blood Pressure Mean (mm Hg) 103 104 105 Source Monitor Monitor Monitor Position Semi-Fowlers Semi-Fowlers Semi-Fowlers Blood Pressure Location Left Arm Left Arm Left Arm History Since Last Visit- (Skip if this is Patient's initial visit) Have you changed medications since your No No No last visit? Any new allergies or adverse reactions No No No Had a fall/change in ADL's that may No No No increase risk of falls Signs or symptoms of abuse and/or No No No neglect since last visit Have you been in the hospital since your No No No last visit? Has dressing in place as prescribed Yes Yes Yes Has compression in place as prescribed Yes Yes Has offloadiing in place as prescribed Yes No No Experienced any changes in pain level or No No No management Left Footwear Regular Shoe Right Footwear Total Contact Cast Pain Scale: 0-10 Numeric Is Patient Pain Free? Yes No Yes Headache -Description Aching -Intensity 5 -Duration (hours) Acute -Pain Behavior Irritability -Pain Aggravating Factors ADL's -Alleviating Factors/Interventions Medication -Effectiveness of Alleviating Factor/ Minimally Intervention effective 11/04/23 11:02 WC - Today's Visit Information Type of service Follow-up Visit (Physician/NURSE ORTHO ) Arrival Mode Ambulatory Transfer Assistance None Patient Identification Verified (Name & Yes ) Patient Requires Transmission-Based No Precautions Finger Stick Blood Sugar(mg/dl) (if 154 indicated): Blood Sugar Stated by Patient Height and Weight Body Mass Index (BMI) 30.9 BMI Classification Obese Vital Signs Temperature (97.8 F-99.1 F) 96.5 F L Temperature Source Temporal Pulse Rate (60-100) 88 Pulse Location Monitor Respiratory Rate (12-18) 18 Respiratory rate source Observation Oxygen Delivery Method Blood Pressure (90/60-120/80) 156/86 H Blood Pressure Mean (mm Hg) 109 Source Monitor Position Semi-Fowlers Blood Pressure Location Left Arm History Since Last Visit- (Skip if this is Patient's initial visit) Have you changed medications since your No last visit? Any new allergies or adverse reactions No Had a fall/change in ADL's that may No increase risk of falls Signs or symptoms of abuse and/or No neglect since last visit Have you been in the hospital since your No last visit? Has dressing in place as prescribed Yes Has compression in place as prescribed No Has offloadiing in place as prescribed Yes Experienced any changes in pain level or No management Left Footwear Right Footwear Pain Scale: 0-10 Numeric Is Patient Pain Free? Yes Headache -Description -Intensity -Duration (hours) -Pain Behavior -Pain Aggravating Factors -Alleviating Factors/Interventions -Effectiveness of Alleviating Factor/ Intervention WC - Nurse 1 - General Ulcer Measurement Start: 10/14/23 10:56 Freq: Status: Active Protocol: Activity Type Activity Date Activity User E-sign Co-sign Detail Recorded Client Recorded Date Recorded By Document 10/14/23 10:57 wound center 10/14/23 11:08 Document 10/21/23 11:11 RB wound 10/21/23 11:14 RB Document 10/28/23 11:00 RB wound 10/28/23 11:02 RB Document 11/04/23 11:02 RB wound 11/04/23 11:08 RB 10/14/23 10/21/23 10/28/23 10:57 11:11 11:00 Wound Center Nurse 1 #2 RT HEEL -Combined with other wound No No -Current Size (cm) - Length 0.7 0.5 0.4 -Current Size (cm) - Width 0.7 0.5 0.4 -Current Size (cm) - Depth 0.3 0.4 0.3 -Total Square Cm 0.49 0.25 0.16 -Photo Taken -Tunneling No No -Undermining/Tunneling No No -Undermining/Tunneling Starts (O'clock ) -Undermining/Tunneling Ends (O'clock) -Maximum Distance (cm) -Circular Undermining No No -Exudate Amt Medium Medium Medium -Exudate Type Serosanguineous Serosanguineous Serosanguineous -Wound Margin Thickened & Thickened & Distinct, Rolled Under Rolled Under Outline Attached -Granulation Amt Medium (34-66%) Medium (34-66%) Medium (34-66%) -Granulation Quality [place] -Slough/Fibrin Yes Yes -Necrosis Amt Medium (34-66%) Medium (34-66%) -Necrotic Tissue Type Adherent Slough Adherent Slough -Structure Exposed N/A N/A -Texture (Lashell-wound Skin Appearance) Assessed Assessed Assessed,Callus -Moisture (Lashell-wound Skin Appearance) Assessed Assessed Assessed -Color (Lashell-wound Skin Appearance) Assessed Assessed Assessed -Temperature (Lashell-wound Skin No Abnormality No Abnormality No Abnormality Appearance) (Pt Warm) (Pt Warm) (Pt Warm) -Tenderness on Palpation (Lashell-wound No No No Skin Appearance) -Ulcer Cleansing Soap and Water Wound Cleanser Wound Cleanser -Foul Odor after Cleansing No No -Anesthetic Used 5% Lidocaine 5% Lidocaine 5% Lidocaine Gel Gel Gel #1 RT GREAT TOE -Combined with other wound No No -Current Size (cm) - Length 0.3 0.1 0.1 -Current Size (cm) - Width 0.4 0.1 0.1 -Current Size (cm) - Depth 0.2 0.1 0.1 -Total Square Cm 0.12 0.01 0.01 -Photo Taken -Tunneling No No -Undermining/Tunneling No No -Circular Undermining No No -Exudate Amt Medium Small -Exudate Type Serosanguineous Serosanguineous -Wound Margin Thickened & Distinct, Thickened Rolled Under Outline Attached -Granulation Amt Medium (34-66%) Medium (34-66%) Medium (34-66%) -Granulation Quality [place] -Slough/Fibrin Yes Yes -Necrosis Amt Medium (34-66%) Medium (34-66%) -Necrotic Tissue Type Adherent Slough Adherent Slough -Structure Exposed N/A N/A -Texture (Lashell-wound Skin Appearance) Assessed Assessed,Callus Assessed,Callus -Moisture (Lashell-wound Skin Appearance) Assessed Assessed Assessed -Color (Lashell-wound Skin Appearance) Assessed Assessed Assessed -Temperature (Lashell-wound Skin No Abnormality No Abnormality No Abnormality Appearance) (Pt Warm) (Pt Warm) (Pt Warm) -Tenderness on Palpation (Lashell-wound No No No Skin Appearance) -Ulcer Cleansing Soap and Water Wound Cleanser Wound Cleanser -Foul Odor after Cleansing No No No -Anesthetic Used 5% Lidocaine 5% Lidocaine 5% Lidocaine Gel Gel Gel Lower Limb Edema Present Yes Yes Right Calf (cm) 43 42 Right Ankle (cm) 23.5 23 11/03/ 11:02 Wound Center Nurse 1 #2 RT HEEL -Combined with other wound No -Current Size (cm) - Length 0.4 -Current Size (cm) - Width 0.4 -Current Size (cm) - Depth 0.4 -Total Square Cm 0.16 -Photo Taken Yes -Tunneling No -Undermining/Tunneling Yes -Undermining/Tunneling Starts (O'clock 12 ) -Undermining/Tunneling Ends (O'clock) 12 -Maximum Distance (cm) 0.4 -Circular Undermining Yes -Exudate Amt Medium -Exudate Type Serous -Wound Margin Thickened -Granulation Amt Medium (34-66%) -Granulation Quality [place] -Slough/Fibrin Yes -Necrosis Amt Medium (34-66%) -Necrotic Tissue Type Adherent Slough -Structure Exposed N/A -Texture (Lashell-wound Skin Appearance) Assessed,Callus -Moisture (Lashell-wound Skin Appearance) Assessed -Color (Lashell-wound Skin Appearance) Assessed -Temperature ([place]hell-wound Skin No Abnormality Appearance) (Pt Warm) -Tenderness on Palpation (Lashell-wound No Skin Appearance) -Ulcer Cleansing Wound Cleanser -Foul Odor after Cleansing No -Anesthetic Used 5% Lidocaine Gel #1 RT GREAT TOE -Combined with other wound No -Current Size (cm) - Length 0.1 -Current Size (cm) - Width 0.1 -Current Size (cm) - Depth 0.1 -Total Square Cm 0.01 -Photo Taken Yes -Tunneling No -Undermining/Tunneling No -Circular Undermining No -Exudate Amt None Present -Exudate Type -Wound Margin Thickened -Granulation Amt Large (67-100%) -Granulation Quality [place] -Slough/Fibrin Yes -Necrosis Amt Small (1-33%) -Necrotic Tissue Type Adherent Slough -Structure Exposed N/A -Texture (Lashell-wound Skin Appearance) Assessed,Callus -Moisture (Lashell-wound Skin Appearance) Assessed -Color ([place]hell-wound Skin Appearance) Assessed -Temperature ([place]hell-wound Skin No Abnormality Appearance) (Pt Warm) -Tenderness on Palpation (Lashell-wound No Skin Appearance) -Ulcer Cleansing Wound Cleanser -Foul Odor after Cleansing No -Anesthetic Used 5% Lidocaine Gel Lower Limb Edema Present Yes Right Calf (cm) 41 Right Ankle (cm) 23 WC - Nurse 2 - General Ulcer CM Notes Start: 10/14/23 10:56 Freq: Status: Active Protocol: Activity Type Activity Date Activity User E-sign Co-sign Detail Recorded Client Recorded Date Recorded By Document 10/14/23 11:17 [id number] 10/14/23 11:20 Document 10/21/23 11:23 [id number] 10/21/23 11:28 Document 10/28/23 11:03 [id number] 10/28/23 11:07 Document 11/04/23 11:11 0000 11/04/23 11:14 10/14/23 10/21/23 10/28/23 11:17 11:23 11:03 Wound Center Nurse 2 #2 RT HEEL -Time 11:17 11:26 11:04 -Correct Patient Yes Yes Yes -Correct Side, Site, Position Yes Yes Yes -Correct Procedure Yes Yes Yes -Procedure Performed Yes Yes Yes -Type of Procedure Debridement Debridement Debridement -Clinical Debridement Subcutaneous Subcutaneous Subcutaneous -Tissue Removed Subcutaneous Subcutaneous Subcutaneous -Post Debridement (cm) - Length 0.9 0.5 0.5 -Post Debridement (cm) - Width 0.9 0.6 0.4 -Post Debridement (cm) - Depth 0.2 0.2 0.1 -Total Square (Post) (cm) 0.81 0.30 0.20 -Area of Debridement (cm) - Length 0.9 0.5 0.5 -Area of Debridement (cm) - Width 0.9 0.6 0.4 -Total Square (Area) (cm) 0.81 0.30 0.20 -Tunneling No No No -Undermining/Tunneling No No No -Circular Undermining No No No -Wound/Ulcer Outcome Not Healed Not Healed Not Healed -Ulcer Cleansing Rinsed/ Rinsed/ Rinsed/ Irrigated with Irrigated with Irrigated with Saline Saline Saline -Foul Odor after Cleansing No No No -Bioengineered Tissue No No No -Bleeding Controlled with Pressure Pressure Pressure -Treatment Response Procedure Procedure Procedure Tolerated Well Tolerated Well Tolerated Well -Offloading Yes Yes Yes -Type of Offloading Surgical Shoe Surgical Shoe Total Contact Cast (TCC) - Right ($) -Debridement - Subq, 1st 20sq cm Yes No No #1 RT GREAT TOE -Time 11:18 11:26 11:04 -Correct Patient Yes Yes Yes -Correct Side, Site, Position Yes Yes Yes -Correct Procedure Yes Yes Yes -Procedure Performed Yes Yes Yes -Type of Procedure Debridement Debridement Debridement -Clinical Debridement Subcutaneous Subcutaneous Subcutaneous -Tissue Removed Subcutaneous Subcutaneous Subcutaneous -Post Debridement (cm) - Length 0.2 0.2 0.2 -Post Debridement (cm) - Width 0.5 0.5 0.6 -Post Debridement (cm) - Depth 0.1 0.1 0.1 -Total Square (Post) (cm) 0.10 0.10 0.12 -Area of Debridement (cm) - Length 0.2 0.2 0.2 -Area of Debridement (cm) - Width 0.5 0.5 0.6 -Total Square (Area) (cm) 0.10 0.10 0.12 -Tunneling No No No -Undermining/Tunneling No No No -Circular Undermining No No No -Wound/Ulcer Outcome Not Healed Not Healed Not Healed -Ulcer Cleansing Rinsed/ Rinsed/ Rinsed/ Irrigated with Irrigated with Irrigated with Saline Saline Saline -Foul Odor after Cleansing No No No -Bioengineered Tissue No No No -Bleeding Controlled with Pressure Pressure Pressure -Treatment Response Procedure Procedure Procedure Tolerated Well Tolerated Well Tolerated Well -Offloading Yes Yes Yes -Type of Offloading Surgical Shoe Surgical Shoe Total Contact Cast (TCC) - Right ($) -Debridement - Subq, 1st 20sq cm No Yes Yes Pain Scale: 0-10 Numeric Is Patient Pain Free? Yes Yes Yes 11/04/23 11:11 Wound Center Nurse 2 #2 RT HEEL -Time 11:11 -Correct Patient Yes -Correct Side, Site, Position Yes -Correct Procedure Yes -Procedure Performed Yes -Type of Procedure Debridement -Clinical Debridement Subcutaneous -Tissue Removed Subcutaneous -Post Debridement (cm) - Length 0.5 -Post Debridement (cm) - Width 0.5 -Post Debridement (cm) - Depth 0.2 -Total Square (Post) (cm) 0.25 -Area of Debridement (cm) - Length 0.5 -Area of Debridement (cm) - Width 0.5 -Total Square (Area) (cm) 0.25 -Tunneling No -Undermining/Tunneling No -Circular Undermining No -Wound/Ulcer Outcome Not Healed -Ulcer Cleansing Rinsed/ Irrigated with Saline -Foul Odor after Cleansing No -Bioengineered Tissue No -Bleeding Controlled with Pressure -Treatment Response Procedure Not Tolerated Well -Offloading Yes -Type of Offloading Total Contact Cast (TCC) - Right ($) -Debridement - Subq, 1st 20sq cm No #1 RT GREAT TOE -Time 11:12 -Correct Patient Yes -Correct Side, Site, Position Yes -Correct Procedure Yes -Procedure Performed Yes -Type of Procedure Debridement -Clinical Debridement Subcutaneous -Tissue Removed Subcutaneous -Post Debridement (cm) - Length 0.2 -Post Debridement (cm) - Width 0.2 -Post Debridement (cm) - Depth 0.2 -Total Square (Post) (cm) 0.04 -Area of Debridement (cm) - Length 0.2 -Area of Debridement (cm) - Width 0.2 -Total Square (Area) (cm) 0.04 -Tunneling No -Undermining/Tunneling No -Circular Undermining No -Wound/Ulcer Outcome Not Healed -Ulcer Cleansing Rinsed/ Irrigated with Saline -Foul Odor after Cleansing No -Bioengineered Tissue No -Bleeding Controlled with Pressure -Treatment Response Procedure Tolerated Well -Offloading Yes -Type of Offloading Total Contact Cast (TCC) - Right ($) -Debridement - Subq, 1st 20sq cm Yes Pain Scale: 0-10 Numeric Is Patient Pain Free? Yes WC - Nurse 3 - General Ulcer D/C NN Start: 10/14/23 10:56 Freq: Status: Active Protocol: Activity Type Activity Date Activity User E-sign Co-sign Detail Recorded Client Recorded Date Recorded By Document 10/14/23 11:48 KW wound center 10/14/23 11:49 KW Document 10/21/23 11:40 [id number] 10/21/23 11:41 JF Document 10/28/23 11:13 KW g 10/28/23 11:14 KW 10/14/23 10/21/23 10/28/23 11:48 11:40 11:13 Wound Care Center Nurse 3 #2 RT HEEL -Ulcer Cleansing Rinsed/ Rinsed/ Irrigated with Irrigated with Saline Saline -Foul Odor after Cleansing No -Primary Dressing Applied Silvercel Silvercel Silvercel -Primary Dressing Covered/Secured with Dry Gauze & Dry Gauze, Dry Gauze Roll Gauze, Secured with Secured with Tape Tape -Silvercel 1 1 1 #1 RT GREAT TOE -Ulcer Cleansing Rinsed/ Irrigated with Saline -Foul Odor after Cleansing No -Primary Dressing Applied Silvercel -Primary Dressing Covered/Secured with Dry Gauze Dry Gauze, Dry Gauze Secured with Tape -Silvercel 0 Right -Tubular Bandage Double Layer Double Layer -Size of Tubigrip Used Size E Size D -Size D ($) 2 -Size E ($) 2 Pain Scale: 0-10 Numeric Is Patient Pain Free? Yes Yes Yes WC - Visit Discharge Discharge Condition Stable Stable Stable Ambulatory Status Ambulatory Ambulatory Ambulatory Transportation Private Auto Private Auto Private Auto Medication Reconcilliation completed & No Yes No provided to patient/care provider Clinical Summary of Care Provided Yes Yes Yes Assessment/Plan Assessment/Plan (1) Type 2 diabetes mellitus with diabetic polyneuropathy: CODE(S): E11.42 - Type 2 diabetes mellitus with diabetic polyneuropathy QUALIFIERS: Diabetes mellitus terminal operations manager insulin use: with terminal operations manager use Qualified Code(s): E11.42 - Type 2 diabetes mellitus with diabetic polyneuropathy; Z79.4 - ad terminal makeup operator (current) use of insulin PLAN: Exam performed Blood sugar control improved. Wound significantly improved today. Today right foot wounds x2 were excisionally debrided down to and including level of subcutaneous tissue using a #15 blade without incident of all non- viable tissue. No anesthesia due to neuropathy. Hemostasis obtained with light compression. Patient tolerated procedure well. Pre/post debridement measurements documented in nursing notes. dressed with silver alginate/DSD Arterial studies demonstrate calcified vessels with no evidence of arterial occlusive disease. Today a total contact cast was applied follow up in 1 week (2) Hallux rigidus, right foot: CODE(S): M20.21 - Hallux rigidus, right foot (3) Non-pressure chronic ulcer of other part of right foot with fat layer exposed: CODE(S): L97.512 - Non-pressure chronic ulcer of other part of right foot with fat layer exposed
[2023-11-05 08:30] LABS: Bedside Glucose 67 mg/dL (74-106)
[2023-11-05 08:31] LABS: Bedside Glucose 80 mg/dL (74-106)
== END 2023-11-09 23:59 | disposition home or self-care (01) ==
LOC: WC 10:45
PROVIDERS: Referring Provider Podiatrist; Visit Provider Podiatrist
DX: E11.621 Type 2 diabetes mellitus with foot ulcer (principal); L97.412 Non-pressure chronic ulcer of right heel and midfoot with fat layer exposed; E11.42 Type 2 diabetes mellitus with diabetic polyneuropathy; Z79.4 Long term (current) use of insulin; M20.21 Hallux rigidus, right foot
CPT/HCPCS: 11042; 29445; 82962

== ENCOUNTER 2023-12-02 11:00 | Outpatient (RCR) | payer MEDICAID, SELFPAY ==
[2023-11-10 00:17] VITALS: BP 146/86; PULSE 87; RESP 18; TEMP 36.2; BMI 30.9
[2023-11-11 10:06] VITALS: BP 134/78; PULSE 89; RESP 18; TEMP 35.3; BMI 30.9
--- NOTE | 2023-11-11 10:35 | PCM.WC.PN ---
History of Present Illness Date of Service: 11/11/23 Progress of Wound: presents with chronic diabetic, neuropathic ulcerations to right heel and right hallux. present for months, unchanging. Denies any fever, chills, nausea, vomiting, chest pain, calf pain or shortness of breath. Patient has attempted no treatments and relates that he had a long history of poorly controlled type II diabetes with loss of sensation to his feet. No other complaints today. Patient current notes improved blood sugar control today and has been compliant with wound care treatments. Objective Data Objective Data Vital Signs: Vital Signs Temp Pulse Resp BP O2 Del Method 95.6 F L 89 18 134/78 H Room Air 11/11/23 10:11/11/23 10:11/11/23 10:11/11/23 10:11/11/23 10:06 Oxygen Delivery Method Room Air Weight: 106.594 kg Body Mass Index (BMI) 30.9 Physical Exam Narrative Vascular: Dorsalis Pedis and Posterior Tibial Pulses 2/4 to bilateral feet. Atrophic skin changes noted. Neurologic: absent light touch/protective sensation to bilateral lower extremities. Dermatologic: Full thickness wound to subcutaneous tissue to right heel with periowund callus. hallux wound healed. Pre/post debridement measurements documented in nursing notes. Wound demonstrates clean, bleeding/granular base with no acute signs of infection. Musculoskeletal: Right hallux 1st MPJ decreased dorsiflexion <5 degrees - this is a wound forming deformity. Muscular strength full. 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 ) Arrival Mode Ambulatory Patient Identification Verified (Name & Yes ) Finger Stick Blood Sugar(mg/dl) (if 157 indicated): Blood Sugar Stated by Patient Height and Weight Body Mass Index (BMI) 30.9 BMI Classification Obese Vital Signs Temperature (97.8 F-99.1 F) 95.6 F L Temperature Source Temporal Pulse Rate (60-100) 89 Pulse Location Monitor Respiratory Rate (12-18) 18 Respiratory rate source Observation Oxygen Delivery Method Room Air Blood Pressure (90/60-120/80) 134/78 H Blood Pressure Mean (mm Hg) 96 Source Monitor Position Semi-Fowlers Blood Pressure Location Left Arm History Since Last Visit- (Skip if this is Patient's initial visit) Have you changed medications since your No last visit? Any new allergies or adverse reactions No Had a fall/change in ADL's that may No increase risk of falls Signs or symptoms of abuse and/or No neglect since last visit Have you been in the hospital since your No last visit? Has dressing in place as prescribed Yes Has compression in place as prescribed Yes Has offloadiing in place as prescribed Yes Experienced any changes in pain level or No management Left Footwear Regular Shoe Right Footwear Total Contact Cast Pain Scale: 0-10 Numeric Is Patient Pain Free? Yes WC - Nurse 1 - General Ulcer Measurement Start: 11/11/23 10:04 Freq: Status: Active Protocol: Activity Type Activity Date Activity User E-sign Co-sign Detail Recorded Client Recorded Date Recorded By Document 11/11/23 10:06 KW z 11/11/23 10:17 KW 11/11/23 10:06 Wound Center Nurse 1 #1 RT GREAT TOE -Current Size (cm) - Length 0.1 -Current Size (cm) - Width 0.1 -Current Size (cm) - Depth 0.1 -Total Square Cm 0.01 -Date of Last Picture (Recall this 11/11/23 field) -Exudate Amt None Present -Wound Margin Distinct, Outline Attached -Texture ([place]-wound Skin Appearance) Assessed -Moisture ([place]-wound Skin Appearance) Assessed -Color ([place]-wound Skin Appearance) Assessed -Temperature ([place]-wound Skin No Abnormality Appearance) (Pt Warm) -Ulcer Cleansing Soap and Water -Foul Odor after Cleansing No -Anesthetic Used 5% Lidocaine Gel #2 RT HEEL -Current Size (cm) - Length 0.3 -Current Size (cm) - Width 0.4 -Current Size (cm) - Depth 0.3 -Total Square Cm 0.12 -Date of Last Picture (Recall this 11/11/23 field) -Exudate Amt Medium -Exudate Type Serosanguineous -Wound Margin Distinct, Outline Attached -Granulation Amt Medium (34-66%) -Granulation Quality [place] -Necrosis Amt Small (1-33%) -Necrotic Tissue Type Adherent Slough -Texture ([place]-wound Skin Appearance) Assessed -Moisture ([place]-wound Skin Appearance) Assessed -Color ([place]-wound Skin Appearance) Assessed -Temperature ([place]-wound Skin No Abnormality Appearance) (Pt Warm) -Ulcer Cleansing Soap and Water -Foul Odor after Cleansing No -Anesthetic Used 5% Lidocaine Gel WC - Nurse 2 - General Ulcer CM Notes Start: 11/11/23 10:04 Freq: Status: Active Protocol: Activity Type Activity Date Activity User E-sign Co-sign Detail Recorded Client Recorded Date Recorded By Document 11/11/23 10:27 [id number] 11/11/23 10:30 11/11/23 10:27 Wound Center Nurse 2 #1 RT GREAT TOE -Correct Patient No -Correct Side, Site, Position No -Correct Procedure No -Procedure Performed No -Post Debridement (cm) - Length 0 -Post Debridement (cm) - Width 0 -Post Debridement (cm) - Depth 0 -Total Square (Post) (cm) 0 -Area of Debridement (cm) - Length 0 -Area of Debridement (cm) - Width 0 -Total Square (Area) (cm) 0 -Wound/Ulcer Outcome Healed- Epithelialized #2 RT HEEL -Time 10:27 -Correct Patient Yes -Correct Side, Site, Position Yes -Correct Procedure Yes -Procedure Performed Yes -Type of Procedure Debridement -Clinical Debridement Subcutaneous -Tissue Removed Subcutaneous -Post Debridement (cm) - Length 0.3 -Post Debridement (cm) - Width 0.4 -Post Debridement (cm) - Depth 0.3 -Total Square (Post) (cm) 0.12 -Area of Debridement (cm) - Length 0.3 -Area of Debridement (cm) - Width 0.4 -Total Square (Area) (cm) 0.12 -Tunneling No -Undermining/Tunneling No -Circular Undermining No -Wound/Ulcer Outcome Not Healed -Ulcer Cleansing Rinsed/ Irrigated with Saline -Foul Odor after Cleansing No -Bioengineered Tissue No -Bleeding Controlled with Pressure -Treatment Response Procedure Tolerated Well -Offloading Yes -Type of Offloading Total Contact Cast (TCC) - Right ($) -Debridement - Subq, 1st 20sq cm Yes Pain Scale: 0-10 Numeric Is Patient Pain Free? Yes Assessment/Plan Assessment/Plan (1) Type 2 diabetes mellitus with diabetic polyneuropathy: CODE(S): E11.42 - Type 2 diabetes mellitus with diabetic polyneuropathy QUALIFIERS: Diabetes mellitus [facility] insulin use: with [facility] use Qualified Code(s): E11.42 - Type 2 diabetes mellitus with diabetic polyneuropathy; Z79.4 - nursing home (current) use of insulin PLAN: Exam performed Blood sugar control improved. Wound significantly improved today. Today right foot wounds x1 (heel) were excisionally debrided down to and including level of subcutaneous tissue using a #15 blade without incident of all non-viable tissue. No anesthesia due to neuropathy. Hemostasis obtained with light compression. Patient tolerated procedure well. Pre/post debridement measurements documented in nursing notes. dressed with silver alginate/DSD Arterial studies demonstrate calcified vessels with no evidence of arterial occlusive disease. Today a total contact cast was applied follow up in 1 week (2) Hallux rigidus, right foot: CODE(S): M20.21 - Hallux rigidus, right foot (3) Non-pressure chronic ulcer of other part of right foot with fat layer exposed: CODE(S): L97.512 - Non-pressure chronic ulcer of other part of right foot with fat layer exposed
[2023-11-18 11:03] VITALS: BP 117/80; PULSE 89; RESP 18; BMI 30.9
--- NOTE | 2023-11-18 11:36 | PCM.WC.PN ---
History of Present Illness Date of Service: 11/18/23 Progress of Wound: presents with chronic diabetic, neuropathic ulcerations to right heel and right hallux. present for months, unchanging. Denies any fever, chills, nausea, vomiting, chest pain, calf pain or shortness of breath. Patient has attempted no treatments and relates that he had a long history of poorly controlled type II diabetes with loss of sensation to his feet. No other complaints today. Patient current notes improved blood sugar control today and has been compliant with wound care treatments. Objective Data Objective Data Vital Signs: Vital Signs Temp Pulse Resp BP O2 Del Method 95.6 F L 89 18 117/80 Room Air 11/11/23 10:06 11/18/23 11:03 11/18/23 11:03 11/18/23 11:03 11/18/23 11:03 Oxygen Delivery Method Room Air Weight: 106.594 kg Body Mass Index (BMI) 30.9 Physical Exam Narrative Vascular: Dorsalis Pedis and Posterior Tibial Pulses 2/4 to bilateral feet. Atrophic skin changes noted. Neurologic: absent light touch/protective sensation to bilateral lower extremities. Dermatologic: Full thickness wound to subcutaneous tissue to right heel with periowund callus. hallux wound healed. Pre/post debridement measurements documented in nursing notes. Wound demonstrates clean, bleeding/granular base with no acute signs of infection. Musculoskeletal: Right hallux 1st MPJ decreased dorsiflexion <5 degrees - this is a wound forming deformity. Muscular strength full. 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 (Physician/BEADING MACHINE OPERATOR ) ) Arrival Mode Ambulatory Ambulatory Patient Identification Verified (Name & Yes Yes ) Finger Stick Blood Sugar(mg/dl) (if 157 indicated): Blood Sugar Stated by Patient Height and Weight Body Mass Index (BMI) 30.9 30.9 BMI Classification Obese Obese Vital Signs Temperature (97.8 F-99.1 F) 95.6 F L Temperature Source Temporal Pulse Rate (60-100) 89 89 Pulse Location Monitor Monitor Respiratory Rate (12-18) 18 18 Respiratory rate source Observation Observation Oxygen Delivery Method Room Air Room Air Blood Pressure (90/60-120/80) 134/78 H 117/80 Blood Pressure Mean (mm Hg) 96 92 Source Monitor Monitor Position Semi-Fowlers Semi-Fowlers Blood Pressure Location Left Arm Right Arm History Since Last Visit- (Skip if this is Patient's initial visit) Have you changed medications since your No No last visit? Any new allergies or adverse reactions No No Had a fall/change in ADL's that may No No increase risk of falls Signs or symptoms of abuse and/or No No neglect since last visit Have you been in the hospital since your No No last visit? Has dressing in place as prescribed Yes Yes Has compression in place as prescribed Yes Yes Has offloadiing in place as prescribed Yes Yes Experienced any changes in pain level or No No management Left Footwear Regular Shoe Regular Shoe Right Footwear Total Contact Total Contact Cast Cast Pain Scale: 0-10 Numeric Is Patient Pain Free? Yes Yes WC - Nurse 1 - General Ulcer Measurement Start: 11/11/23 10:04 Freq: Status: Active Protocol: Activity Type Activity Date Activity User E-sign Co-sign Detail Recorded Client Recorded Date Recorded By Document 11/11/23 10:06 KW z 11/11/23 10:17 KW Document 11/18/23 11:03 KW l 11/18/23 11:16 KW 11/11/23 11/18/23 10:06 11:03 Wound Center Nurse 1 #1 RT GREAT TOE -Current Size (cm) - Length 0.1 -Current Size (cm) - Width 0.1 -Current Size (cm) - Depth 0.1 -Total Square Cm 0.01 -Date of Last Picture (Recall this 11/11/23 field) -Exudate Amt None Present -Wound Margin Distinct, Outline Attached -Texture ([place]-wound Skin Appearance) Assessed -Moisture ([place]-wound Skin Appearance) Assessed -Color ([place]-wound Skin Appearance) Assessed -Temperature ([place]-wound Skin No Abnormality Appearance) (Pt Warm) -Ulcer Cleansing Soap and Water -Foul Odor after Cleansing No -Anesthetic Used 5% Lidocaine Gel #2 RT HEEL -Current Size (cm) - Length 0.3 0.3 -Current Size (cm) - Width 0.4 0.3 -Current Size (cm) - Depth 0.3 0.2 -Total Square Cm 0.12 0.09 -Date of Last Picture (Recall this 11/11/23 11/18/23 field) -Epithelialization Medium 34-66% -Exudate Amt Medium Small -Exudate Type Serosanguineous Serosanguineous -Wound Margin Distinct, Distinct, Outline Outline Attached Attached -Granulation Amt Medium (34-66%) Large (67-100%) -Granulation Quality [place] -Necrosis Amt Small (1-33%) Small (1-33%) -Necrotic Tissue Type Adherent Slough Adherent Slough -Texture ([place]-wound Skin Appearance) Assessed Assessed,Callus -Moisture ([place]-wound Skin Appearance) Assessed Maceration -Color ([place]-wound Skin Appearance) Assessed Assessed -Temperature ([place]-wound Skin No Abnormality No Abnormality Appearance) (Pt Warm) (Pt Warm) -Tenderness on Palpation ([place]-wound No Skin Appearance) -Ulcer Cleansing Soap and Water Soap and Water -Foul Odor after Cleansing No No -Anesthetic Used 5% Lidocaine 5% Lidocaine Gel Gel WC - Nurse 2 - General Ulcer CM Notes Start: 11/11/23 10:04 Freq: Status: Active Protocol: Activity Type Activity Date Activity User E-sign Co-sign Detail Recorded Client Recorded Date Recorded By Document 11/11/23 10:27 [id number] 11/11/23 10:30 Document 11/18/23 11:21 0000 11/18/23 11:23 11/11/23 11/18/23 10:27 11:21 Wound Center Nurse 2 #1 RT GREAT TOE -Correct Patient No -Correct Side, Site, Position No -Correct Procedure No -Procedure Performed No -Post Debridement (cm) - Length 0 -Post Debridement (cm) - Width 0 -Post Debridement (cm) - Depth 0 -Total Square (Post) (cm) 0 -Area of Debridement (cm) - Length 0 -Area of Debridement (cm) - Width 0 -Total Square (Area) (cm) 0 -Wound/Ulcer Outcome Healed- Epithelialized #2 RT HEEL -Time 10:27 11:22 -Correct Patient Yes Yes -Correct Side, Site, Position Yes Yes -Correct Procedure Yes Yes -Procedure Performed Yes Yes -Type of Procedure Debridement Debridement -Clinical Debridement Subcutaneous Subcutaneous -Tissue Removed Subcutaneous Subcutaneous -Post Debridement (cm) - Length 0.3 0.3 -Post Debridement (cm) - Width 0.4 0.3 -Post Debridement (cm) - Depth 0.3 0.2 -Total Square (Post) (cm) 0.12 0.09 -Area of Debridement (cm) - Length 0.3 0.3 -Area of Debridement (cm) - Width 0.4 0.3 -Total Square (Area) (cm) 0.12 0.09 -Tunneling No No -Undermining/Tunneling No No -Circular Undermining No No -Wound/Ulcer Outcome Not Healed Not Healed -Ulcer Cleansing Rinsed/ Rinsed/ Irrigated with Irrigated with Saline Saline -Foul Odor after Cleansing No No -Bioengineered Tissue No No -Bleeding Controlled with Pressure Pressure -Treatment Response Procedure Procedure Tolerated Well Tolerated Well -Offloading Yes Yes -Type of Offloading Total Contact Surgical Shoe Cast (TCC) - Right ($) -Debridement - Subq, 1st 20sq cm Yes Yes Pain Scale: 0-10 Numeric Is Patient Pain Free? Yes Yes - Nurse 3 - General Ulcer D/C NN Start: 11/11/23 10:04 Freq: Status: Active Protocol: Activity Type Activity Date Activity User E-sign Co-sign Detail Recorded Client Recorded Date Recorded By Document 11/11/23 10:36 KW z 11/11/23 10:36 KW 11/11/23 10:36 Wound Care Center Nurse 3 #2 RT HEEL -Primary Dressing Applied Aquacel AG 2x2 -Other Dressing betadine -Primary Dressing Covered/Secured with Dry Gauze & Roll Gauze, Secured with Tape -Aquacel AG 2x2 1 Pain Scale: 0-10 Numeric Is Patient Pain Free? 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 Wound significantly improved today. Today right foot wounds x1 (heel) were excisionally debrided down to and including level of subcutaneous tissue using a #15 blade without incident of all non-viable tissue. No anesthesia due to neuropathy. Hemostasis obtained with light compression. Patient tolerated procedure well. Pre/post debridement measurements documented in nursing notes. dressed with silver alginate/DSD Arterial studies demonstrate calcified vessels with no evidence of arterial occlusive disease. patient refused total contact cast today, discussed risk of wound worsening and continue risk of delayed healing with additional risk of life and limb threatening infection follow up in 1 week (2) Hallux rigidus, right foot: CODE(S): M20.21 - Hallux rigidus, right foot (3) Non-pressure chronic ulcer of other part of right foot with fat layer exposed: CODE(S): L97.512 - Non-pressure chronic ulcer of other part of right foot with fat layer exposed
--- NOTE | 2023-11-20 10:04 | WC ---
PHOTO 11/18/2023 RIGHT HEEL
[2023-11-25 11:03] VITALS: BP 133/90; PULSE 93; RESP 18; TEMP 36.4; BMI 30.9
--- NOTE | 2023-11-25 11:25 | PCM.WC.PN ---
History of Present Illness Date of Service: 11/25/23 Progress of Wound: presents with chronic diabetic, neuropathic ulcerations to right heel and right hallux. present for months, unchanging. Denies any fever, chills, nausea, vomiting, chest pain, calf pain or shortness of breath. Patient has attempted no treatments and relates that he had a long history of poorly controlled type II diabetes with loss of sensation to his feet. No other complaints today. Patient current notes improved blood sugar control today and has been compliant with wound care treatments. Objective Data Objective Data Vital Signs: Vital Signs Temp Pulse Resp BP O2 Del Method 97.6 F L 93 18 133/90 H Room Air 11/25/23 11:03 11/25/23 11:03 11/25/23 11:03 11/25/23 11:03 11/25/23 11:03 Oxygen Delivery Method Room Air Weight: 106.594 kg Body Mass Index (BMI) 30.9 Physical Exam Narrative Vascular: Dorsalis Pedis and Posterior Tibial Pulses 2/4 to bilateral feet. Atrophic skin changes noted. Neurologic: absent light touch/protective sensation to bilateral lower extremities. Dermatologic: Full thickness wound to subcutaneous tissue to right heel with periowund callus. hallux wound healed. Pre/post debridement measurements documented in nursing notes. Wound demonstrates clean, bleeding/granular base with no acute signs of infection. Musculoskeletal: Right hallux 1st MPJ decreased dorsiflexion <5 degrees - this is a wound forming deformity. Muscular strength full. Debridement Note Debridement Note Post-Debridement Measurements and Additional Note: Post-Debridement Measurements/Treatment MARISOL - Nurse 1 - General Ulcer Assessment Start: 11/11/23 10:04 Freq: Status: Active Protocol: ALEKSANDRA Activity Type Activity Date Activity User E-sign Co-sign Detail Recorded Client Recorded Date Recorded By Document 11/11/23 10:06 KW z 11/11/23 10:17 KW Document 11/18/23 11:03 KW l 11/18/23 11:16 KW Document 11/25/23 11:03 KW ; 11/25/23 11:09 KW 11/11/23 11/18/23 11/25/23 10:06 11:03 11:03 WC - Today's Visit Information Type of service Follow-up Visit Follow-up Visit Follow-up Visit (Physician/DIRECTOR OF AUTOMATION (Physician/DIRECTOR OF AUTOMATION (Physician/DIRECTOR OF AUTOMATION ) ) ) Arrival Mode Ambulatory Ambulatory Ambulatory Patient Identification Verified (Name & Yes Yes Yes ) Finger Stick Blood Sugar(mg/dl) (if 157 136 indicated): Blood Sugar Stated by Stated by Patient Patient Height and Weight Body Mass Index (BMI) 30.9 30.9 30.9 BMI Classification Obese Obese Obese Vital Signs Temperature (97.8 F-99.1 F) 95.6 F L 97.6 F L Temperature Source Temporal Temporal Pulse Rate (60-100) 89 89 93 Pulse Location Monitor Monitor Monitor Respiratory Rate (12-18) 18 18 18 Respiratory rate source Observation Observation Observation Oxygen Delivery Method Room Air Room Air Room Air Blood Pressure (90/60-120/80) 134/78 H 117/80 133/90 H Blood Pressure Mean (mm Hg) 96 92 104 Source Monitor Monitor Monitor Position Semi-Fowlers Semi-Fowlers Semi-Fowlers Blood Pressure Location Left Arm Right Arm Left Arm History Since Last Visit- (Skip if this is Patient's initial visit) Have you changed medications since your No No No last visit? Any new allergies or adverse reactions No No No Had a fall/change in ADL's that may No No No increase risk of falls Signs or symptoms of abuse and/or No No No neglect since last visit Have you been in the hospital since your No No No last visit? Has dressing in place as prescribed Yes Yes Yes Has compression in place as prescribed Yes Yes N/A Has offloadiing in place as prescribed Yes Yes N/A Experienced any changes in pain level or No No No management Left Footwear Regular Shoe Regular Shoe Regular Shoe Right Footwear Total Contact Total Contact Regular Shoe Cast Cast Pain Scale: 0-10 Numeric Is Patient Pain Free? Yes Yes Yes WC - Nurse 1 - General Ulcer Measurement Start: 11/11/23 10:04 Freq: Status: Active Protocol: Activity Type Activity Date Activity User E-sign Co-sign Detail Recorded Client Recorded Date Recorded By Document 11/11/23 10:06 KW z 11/11/23 10:17 KW Document 11/18/23 11:03 KW l 11/18/23 11:16 KW Document 11/25/23 11:03 KW ; 11/25/23 11:09 KW 11/11/23 11/18/23 11/25/23 10:06 11:03 11:03 Wound Center Nurse 1 #1 RT GREAT TOE -Current Size (cm) - Length 0.1 -Current Size (cm) - Width 0.1 -Current Size (cm) - Depth 0.1 -Total Square Cm 0.01 -Date of Last Picture (Recall this 11/11/23 field) -Exudate Amt None Present -Wound Margin Distinct, Outline Attached -Texture ([place]-wound Skin Appearance) Assessed -Moisture ([place]-wound Skin Appearance) Assessed -Color ([place]-wound Skin Appearance) Assessed -Temperature ([place]-wound Skin No Abnormality Appearance) (Pt Warm) -Ulcer Cleansing Soap and Water -Foul Odor after Cleansing No -Anesthetic Used 5% Lidocaine Gel #2 RT HEEL -Current Size (cm) - Length 0.3 0.3 0.1 -Current Size (cm) - Width 0.4 0.3 0.1 -Current Size (cm) - Depth 0.3 0.2 0.1 -Total Square Cm 0.12 0.09 0.01 -Date of Last Picture (Recall this 11/11/23 11/18/23 field) -Epithelialization Medium 34-66% -Exudate Amt Medium Small None Present -Exudate Type Serosanguineous Serosanguineous -Wound Margin Distinct, Distinct, Distinct, Outline Outline Outline Attached Attached Attached -Granulation Amt Medium (34-66%) Large (67-100%) -Granulation Quality [place] -Necrosis Amt Small (1-33%) Small (1-33%) -Necrotic Tissue Type Adherent Slough Adherent Slough -Texture ([place]hell-wound Skin Appearance) Assessed Assessed,Callus Callus -Moisture ([place]-wound Skin Appearance) Assessed Maceration Assessed -Color ([place]-wound Skin Appearance) Assessed Assessed Assessed -Temperature ([place]-wound Skin No Abnormality No Abnormality No Abnormality Appearance) (Pt Warm) (Pt Warm) (Pt Warm) -Tenderness on Palpation ([place]-wound No No Skin Appearance) -Ulcer Cleansing Soap and Water Soap and Water Rinsed/ Irrigated with Saline -Foul Odor after Cleansing No No No -Anesthetic Used 5% Lidocaine 5% Lidocaine 5% Lidocaine Gel Gel Gel Right Calf (cm) 42 Right Ankle (cm) 22.5 WC - Nurse 2 - General Ulcer CM Notes Start: 11/11/23 10:04 Freq: Status: Active Protocol: Activity Type Activity Date Activity User E-sign Co-sign Detail Recorded Client Recorded Date Recorded By Document 11/11/23 10:27 [id number] 11/11/23 10:30 Document 11/18/23 11:21 0000 11/18/23 11:23 Document 11/25/23 11:18 [facility] [id number] 11/25/23 11:20 F 11/11/23 11/18/23 11/25/23 10:27 11:21 11:18 Wound Center Nurse 2 #1 RT GREAT TOE -Correct Patient No -Correct Side, Site, Position No -Correct Procedure No -Procedure Performed No -Post Debridement (cm) - Length 0 -Post Debridement (cm) - Width 0 -Post Debridement (cm) - Depth 0 -Total Square (Post) (cm) 0 -Area of Debridement (cm) - Length 0 -Area of Debridement (cm) - Width 0 -Total Square (Area) (cm) 0 -Wound/Ulcer Outcome Healed- Epithelialized #2 RT HEEL -Time 10:27 11:22 11:19 -Correct Patient Yes Yes Yes -Correct Side, Site, Position Yes Yes Yes -Correct Procedure Yes Yes Yes -Procedure Performed Yes Yes Yes -Type of Procedure Debridement Debridement Debridement -Clinical Debridement Subcutaneous Subcutaneous Subcutaneous -Tissue Removed Subcutaneous Subcutaneous Subcutaneous -Post Debridement (cm) - Length 0.3 0.3 0.1 -Post Debridement (cm) - Width 0.4 0.3 0.1 -Post Debridement (cm) - Depth 0.3 0.2 0.1 -Total Square (Post) (cm) 0.12 0.09 0.01 -Area of Debridement (cm) - Length 0.3 0.3 0.1 -Area of Debridement (cm) - Width 0.4 0.3 0.1 -Total Square (Area) (cm) 0.12 0.09 0.01 -Tunneling No No No -Undermining/Tunneling No No No -Circular Undermining No No No -Wound/Ulcer Outcome Not Healed Not Healed Not Healed -Ulcer Cleansing Rinsed/ Rinsed/ Rinsed/ Irrigated with Irrigated with Irrigated with Saline Saline Saline -Foul Odor after Cleansing No No No -Bioengineered Tissue No No No -Bleeding Controlled with Pressure Pressure Pressure -Treatment Response Procedure Procedure Procedure Tolerated Well Tolerated Well Tolerated Well -Offloading Yes Yes -Type of Offloading Total Contact Surgical Shoe Cast (TCC) - Right ($) -Debridement - Subq, 1st 20sq cm Yes Yes Yes Pain Scale: 0-10 Numeric Is Patient Pain Free? Yes Yes Yes - Nurse 3 - General Ulcer D/C NN Start: 11/11/23 10:04 Freq: Status: Active Protocol: Activity Type Activity Date Activity User E-sign Co-sign Detail Recorded Client Recorded Date Recorded By Document 11/11/23 10:36 KW z 11/11/23 10:36 KW Document 11/18/23 11:35 DL [id number] 11/18/23 11:37 DL 11/11/23 11/18/23 10:36 11:35 Wound Care Center Nurse 3 #2 RT HEEL -Ulcer Cleansing Rinsed/ Irrigated with Saline -Foul Odor after Cleansing No -Primary Dressing Applied Aquacel AG 2x2 -Other Dressing betadine aquacel AG -Primary Dressing Covered/Secured with Dry Gauze & Dry Gauze & Roll Gauze, Roll Gauze, Secured with Secured with Tape Tape -Aquacel AG 2x2 1 Treatment Response Procedure Tolerated Well Pain Scale: 0-10 Numeric Is Patient Pain Free? Yes Yes WC - Visit Discharge Discharge Condition Stable Stable Ambulatory Status Ambulatory Ambulatory Transportation Private Auto Private Auto Medication Reconcilliation completed & No provided to patient/care provider Clinical Summary of Care Provided Yes Assessment/Plan Assessment/Plan (1) Type 2 diabetes mellitus with diabetic polyneuropathy: CODE(S): E11.42 - Type 2 diabetes mellitus with diabetic polyneuropathy QUALIFIERS: Diabetes mellitus salvage determiner insulin use: with halfway use Qualified Code(s): E11.42 - Type 2 diabetes mellitus with diabetic polyneuropathy; Z79.4 - [facility] (current) use of insulin PLAN: Exam performed Blood sugar control improved. Wound significantly improved today. Today right foot wounds x1 (heel) were excisionally debrided down to and including level of subcutaneous tissue using a #15 blade without incident of all non-viable tissue. No anesthesia due to neuropathy. Hemostasis obtained with light compression. Patient tolerated procedure well. Pre/post debridement measurements documented in nursing notes. dressed with silver alginate/DSD Arterial studies demonstrate calcified vessels with no evidence of arterial occlusive disease. patient refused total contact cast today follow up in 1 week (2) Hallux rigidus, right foot: CODE(S): M20.21 - Hallux rigidus, right foot (3) Non-pressure chronic ulcer of other part of right foot with fat layer exposed: CODE(S): L97.512 - Non-pressure chronic ulcer of other part of right foot with fat layer exposed
[2023-12-02 11:53] VITALS: BP 156/90; PULSE 84; RESP 18; TEMP 36.6; BMI 30.9
--- NOTE | 2023-12-02 12:05 | PN.PCM_ITS ---
History of Present Illness Date of Service: 12/02/23 Progress of Wound: presents with chronic diabetic, neuropathic ulcerations to right heel and right hallux. present for months, unchanging. Denies any fever, chills, nausea, vomiting, chest pain, calf pain or shortness of breath. Patient has attempted no treatments and relates that he had a long history of poorly controlled type II diabetes with loss of sensation to his feet. No other complaints today. Patient current notes improved blood sugar control today and has been compliant with wound care treatments. Objective Data Objective Data Vital Signs: Vital Signs Temp Pulse Resp BP O2 Del Method 98 F 84 18 156/90 H Room Air 12/02/23 11:53 12/02/23 11:53 12/02/23 11:53 12/02/23 11:53 11/25/23 11:03 Oxygen Delivery Method Room Air Weight: 106.594 kg Body Mass Index (BMI) 30.9 Physical Exam Narrative Vascular: Dorsalis Pedis and Posterior Tibial Pulses 2/4 to bilateral feet. Atrophic skin changes noted. Neurologic: absent light touch/protective sensation to bilateral lower extremities. Dermatologic: Full thickness wound to subcutaneous tissue to right heel with periowund callus. hallux wound healed. Pre/post debridement measurements documented in nursing notes. Wound demonstrates clean, bleeding/granular base with no acute signs of infection. Musculoskeletal: Right hallux 1st MPJ decreased dorsiflexion <5 degrees - this is a wound forming deformity. Muscular strength full. Debridement Note Debridement Note Post-Debridement Measurements and Additional Note: Post-Debridement Measurements/Treatment - Nurse 1 - General Ulcer Assessment Start: 11/11/23 10:04 Freq: Status: Active Protocol: ALEKSANDRA Activity Type Activity Date Activity User E-sign Co-sign Detail Recorded Client Recorded Date Recorded By Document 11/11/23 10:06 KW z 11/11/23 10:17 KW Document 11/18/23 11:03 KW l 11/18/23 11:16 KW Document 11/25/23 11:03 KW ; 11/25/23 11:09 KW Document 12/02/23 11:53 RB wound 12/02/23 11:54 RB 11/11/23 11/18/23 11/25/23 10:06 11:03 11:03 - Today's Visit Information Type of service Follow-up Visit Follow-up Visit Follow-up Visit (Physician/RESEARCH SCIENTIST (Physician/RESEARCH SCIENTIST (Physician/RESEARCH SCIENTIST ) ) ) Arrival Mode Ambulatory Ambulatory Ambulatory Transfer Assistance Patient Identification Verified (Name & Yes Yes Yes ) Patient Requires Transmission-Based Precautions Finger Stick Blood Sugar(mg/dl) (if 157 136 indicated): Blood Sugar Stated by Stated by Patient Patient Height and Weight Body Mass Index (BMI) 30.9 30.9 30.9 BMI Classification Obese Obese Obese Vital Signs Temperature (97.8 F-99.1 F) 95.6 F L 97.6 F L Temperature Source Temporal Temporal Pulse Rate (60-100) 89 89 93 Pulse Location Monitor Monitor Monitor Respiratory Rate (12-18) 18 18 18 Respiratory rate source Observation Observation Observation Oxygen Delivery Method Room Air Room Air Room Air Blood Pressure (90/60-120/80) 134/78 H 117/80 133/90 H Blood Pressure Mean (mm Hg) 96 92 104 Source Monitor Monitor Monitor Position Semi-Fowlers Semi-Fowlers Semi-Fowlers Blood Pressure Location Left Arm Right Arm Left Arm History Since Last Visit- (Skip if this is Patient's initial visit) Have you changed medications since your No No No last visit? Any new allergies or adverse reactions No No No Had a fall/change in ADL's that may No No No increase risk of falls Signs or symptoms of abuse and/or No No No neglect since last visit Have you been in the hospital since your No No No last visit? Has dressing in place as prescribed Yes Yes Yes Has compression in place as prescribed Yes Yes N/A Has offloadiing in place as prescribed Yes Yes N/A Experienced any changes in pain level or No No No management Left Footwear Regular Shoe Regular Shoe Regular Shoe Right Footwear Total Contact Total Contact Regular Shoe Cast Cast Pain Scale: 0-10 Numeric Is Patient Pain Free? Yes Yes Yes 12/02/23 11:53 WC - Today's Visit Information Type of service Follow-up Visit (Physician/RESEARCH SCIENTIST ) Arrival Mode Ambulatory Transfer Assistance None Patient Identification Verified (Name & Yes ) Patient Requires Transmission-Based No Precautions Finger Stick Blood Sugar(mg/dl) (if indicated): Blood Sugar Height and Weight Body Mass Index (BMI) 30.9 BMI Classification Obese Vital Signs Temperature (97.8 F-99.1 F) 98 F Temperature Source Temporal Pulse Rate (60-100) 84 Pulse Location Monitor Respiratory Rate (12-18) 18 Respiratory rate source Observation Oxygen Delivery Method Blood Pressure (90/60-120/80) 156/90 H Blood Pressure Mean (mm Hg) 112 Source Monitor Position Semi-Fowlers Blood Pressure Location Left Arm History Since Last Visit- (Skip if this is Patient's initial visit) Have you changed medications since your No last visit? Any new allergies or adverse reactions No Had a fall/change in ADL's that may No increase risk of falls Signs or symptoms of abuse and/or No neglect since last visit Have you been in the hospital since your No last visit? Has dressing in place as prescribed Yes Has compression in place as prescribed No Has offloadiing in place as prescribed No Experienced any changes in pain level or No management Left Footwear Right Footwear Pain Scale: 0-10 Numeric Is Patient Pain Free? Yes WC - Nurse 1 - General Ulcer Measurement Start: 11/11/23 10:04 Freq: Status: Active Protocol: Activity Type Activity Date Activity User E-sign Co-sign Detail Recorded Client Recorded Date Recorded By Document 11/11/23 10:06 KW z 11/11/23 10:17 KW Document 11/18/23 11:03 KW l 11/18/23 11:16 KW Document 11/25/23 11:03 KW ; 11/25/23 11:09 KW Document 12/02/23 11:53 RB wound 12/02/23 11:54 RB 11/11/23 11/18/23 11/25/23 10:06 11:03 11:03 Wound Center Nurse 1 #1 RT GREAT TOE -Current Size (cm) - Length 0.1 -Current Size (cm) - Width 0.1 -Current Size (cm) - Depth 0.1 -Total Square Cm 0.01 -Date of Last Picture (Recall this 11/11/23 field) -Exudate Amt None Present -Wound Margin Distinct, Outline Attached -Texture (Lashell-wound Skin Appearance) Assessed -Moisture ([place]hell-wound Skin Appearance) Assessed -Color ([place]hell-wound Skin Appearance) Assessed -Temperature ([place]hell-wound Skin No Abnormality Appearance) (Pt Warm) -Ulcer Cleansing Soap and Water -Foul Odor after Cleansing No -Anesthetic Used 5% Lidocaine Gel #2 RT HEEL -Combined with other wound -Current Size (cm) - Length 0.3 0.3 0.1 -Current Size (cm) - Width 0.4 0.3 0.1 -Current Size (cm) - Depth 0.3 0.2 0.1 -Total Square Cm 0.12 0.09 0.01 -Date of Last Picture (Recall this 11/11/23 11/18/23 field) -Epithelialization Medium 34-66% -Tunneling -Undermining/Tunneling -Circular Undermining -Exudate Amt Medium Small None Present -Exudate Type Serosanguineous Serosanguineous -Wound Margin Distinct, Distinct, Distinct, Outline Outline Outline Attached Attached Attached -Granulation Amt Medium (34-66%) Large (67-100%) -Granulation Quality [place] -Slough/Fibrin -Necrosis Amt Small (1-33%) Small (1-33%) -Necrotic Tissue Type Adherent Slough Adherent Slough -Structure Exposed -Texture (Lashell-wound Skin Appearance) Assessed Assessed,Callus Callus -Moisture ([place]hell-wound Skin Appearance) Assessed Maceration Assessed -Color ([place]hell-wound Skin Appearance) Assessed Assessed Assessed -Temperature ([place]hell-wound Skin No Abnormality No Abnormality No Abnormality Appearance) (Pt Warm) (Pt Warm) (Pt Warm) -Tenderness on Palpation ([place]hell-wound No No Skin Appearance) -Ulcer Cleansing Soap and Water Soap and Water Rinsed/ Irrigated with Saline -Foul Odor after Cleansing No No No -Anesthetic Used 5% Lidocaine 5% Lidocaine 5% Lidocaine Gel Gel Gel Right Calf (cm) 42 Right Ankle (cm) 22.5 12/02/23 11:53 Wound Center Nurse 1 #1 RT GREAT TOE -Current Size (cm) - Length -Current Size (cm) - Width -Current Size (cm) - Depth -Total Square Cm -Date of Last Picture (Recall this field) -Exudate Amt -Wound Margin -Texture (Lashell-wound Skin Appearance) -Moisture (Lashell-wound Skin Appearance) -Color (Lashell-wound Skin Appearance) -Temperature ([place]hell-wound Skin Appearance) -Ulcer Cleansing -Foul Odor after Cleansing -Anesthetic Used #2 RT HEEL -Combined with other wound No -Current Size (cm) - Length 0.1 -Current Size (cm) - Width 0.1 -Current Size (cm) - Depth 0.1 -Total Square Cm 0.01 -Date of Last Picture (Recall this field) -Epithelialization -Tunneling No -Undermining/Tunneling No -Circular Undermining No -Exudate Amt Medium -Exudate Type Serosanguineous -Wound Margin Distinct, Outline Attached -Granulation Amt Medium (34-66%) -Granulation Quality [place] -Slough/Fibrin Yes -Necrosis Amt Medium (34-66%) -Necrotic Tissue Type Adherent Slough -Structure Exposed N/A -Texture (Lashell-wound Skin Appearance) Callus -Moisture (Lashell-wound Skin Appearance) Assessed -Color ([place]hell-wound Skin Appearance) Assessed -Temperature (Lashell-wound Skin No Abnormality Appearance) (Pt Warm) -Tenderness on Palpation (Lashell-wound No Skin Appearance) -Ulcer Cleansing Wound Cleanser -Foul Odor after Cleansing No -Anesthetic Used 5% Lidocaine Gel Right Calf (cm) Right Ankle (cm) WC - Nurse 2 - General Ulcer CM Notes Start: 11/11/23 10:04 Freq: Status: Active Protocol: Activity Type Activity Date Activity User E-sign Co-sign Detail Recorded Client Recorded Date Recorded By Document 11/11/23 10:27 [id number] 11/11/23 10:30 Document 11/18/23 11:21 0000 11/18/23 11:23 Document 11/25/23 11:18 [facility] [id number] 11/25/23 11:20 [facility] 11/11/23 11/18/23 11/25/23 10:27 11:21 11:18 Wound Center Nurse 2 #1 RT GREAT TOE -Correct Patient No -Correct Side, Site, Position No -Correct Procedure No -Procedure Performed No -Post Debridement (cm) - Length 0 -Post Debridement (cm) - Width 0 -Post Debridement (cm) - Depth 0 -Total Square (Post) (cm) 0 -Area of Debridement (cm) - Length 0 -Area of Debridement (cm) - Width 0 -Total Square (Area) (cm) 0 -Wound/Ulcer Outcome Healed- Epithelialized #2 RT HEEL -Time 10:27 11:22 11:19 -Correct Patient Yes Yes Yes -Correct Side, Site, Position Yes Yes Yes -Correct Procedure Yes Yes Yes -Procedure Performed Yes Yes Yes -Type of Procedure Debridement Debridement Debridement -Clinical Debridement Subcutaneous Subcutaneous Subcutaneous -Tissue Removed Subcutaneous Subcutaneous Subcutaneous -Post Debridement (cm) - Length 0.3 0.3 0.1 -Post Debridement (cm) - Width 0.4 0.3 0.1 -Post Debridement (cm) - Depth 0.3 0.2 0.1 -Total Square (Post) (cm) 0.12 0.09 0.01 -Area of Debridement (cm) - Length 0.3 0.3 0.1 -Area of Debridement (cm) - Width 0.4 0.3 0.1 -Total Square (Area) (cm) 0.12 0.09 0.01 -Tunneling No No No -Undermining/Tunneling No No No -Circular Undermining No No No -Wound/Ulcer Outcome Not Healed Not Healed Not Healed -Ulcer Cleansing Rinsed/ Rinsed/ Rinsed/ Irrigated with Irrigated with Irrigated with Saline Saline Saline -Foul Odor after Cleansing No No No -Bioengineered Tissue No No No -Bleeding Controlled with Pressure Pressure Pressure -Treatment Response Procedure Procedure Procedure Tolerated Well Tolerated Well Tolerated Well -Offloading Yes Yes -Type of Offloading Total Contact Surgical Shoe Cast (TCC) - Right ($) -Debridement - Subq, 1st 20sq cm Yes Yes Yes Pain Scale: 0-10 Numeric Is Patient Pain Free? Yes Yes Yes WC - Nurse 3 - General Ulcer D/C NN Start: 11/11/23 10:04 Freq: Status: Active Protocol: Activity Type Activity Date Activity User E-sign Co-sign Detail Recorded Client Recorded Date Recorded By Document 11/11/23 10:36 KW z 11/11/23 10:36 KW Document 11/18/23 11:35 DL [id number] 11/18/23 11:37 DL Document 11/25/23 11:26 KW ; 11/25/23 11:28 KW 11/11/23 11/18/23 11/25/23 10:36 11:35 11:26 Wound Care Center Nurse 3 #2 RT HEEL -Ulcer Cleansing Rinsed/ Rinsed/ Irrigated with Irrigated with Saline Saline -Foul Odor after Cleansing No -Primary Dressing Applied Aquacel AG 2x2 Aquacel AG 4x4 -Other Dressing betadine aquacel AG -Primary Dressing Covered/Secured with Dry Gauze & Dry Gauze & Dry Gauze, Roll Gauze, Roll Gauze, Secured with Secured with Secured with Tape Tape Tape -Aquacel AG 2x2 1 -Aquacel AG 4x4 1 Treatment Response Procedure Procedure Tolerated Well Tolerated Well Pain Scale: 0-10 Numeric Is Patient Pain Free? Yes Yes Yes WC - Visit Discharge Discharge Condition Stable Stable Stable Ambulatory Status Ambulatory Ambulatory Ambulatory Transportation Private Auto Private Auto Private Auto Medication Reconcilliation completed & No No provided to patient/care provider Clinical Summary of Care Provided Yes Yes Assessment/Plan Assessment/Plan (1) Type 2 diabetes mellitus with diabetic polyneuropathy: CODE(S): E11.42 - Type 2 diabetes mellitus with diabetic polyneuropathy QUALIFIERS: Diabetes mellitus terminal press operator insulin use: with correction use Qualified Code(s): E11.42 - Type 2 diabetes mellitus with diabetic polyneuropathy; Z79.4 - [facility] ([facility] use of insulin PLAN: Exam performed Blood sugar control improved. Wound healed right foot continua daily foot checks, follow up in outpatient clinic for DM shoes follow up in 1 week (2) Hallux rigidus, right foot: CODE(S): M20.21 - Hallux rigidus, right foot (3) Non-pressure chronic ulcer of other part of right foot with fat layer exposed: CODE(S): L97.512 - Non-pressure chronic ulcer of other part of right foot with fat layer exposed
--- NOTE | 2023-12-10 10:51 | WC ---
PHOTO RIGHT HEEL 12/02/23
--- NOTE | 2023-12-10 10:52 | WC ---
PHOTO 12/03/23 LEFT KNEE
== END 2023-12-05 08:39 | disposition home or self-care (01) ==
LOC: WC 11:00
PROVIDERS: PCP Family Medicine; Referring Provider Podiatrist; Visit Provider Podiatrist
DX: E11.621 Type 2 diabetes mellitus with foot ulcer (principal); L97.412 Non-pressure chronic ulcer of right heel and midfoot with fat layer exposed; L97.512 Non-pressure chronic ulcer of other part of right foot with fat layer exposed; E11.42 Type 2 diabetes mellitus with diabetic polyneuropathy; M20.21 Hallux rigidus, right foot
CPT/HCPCS: 11042; 29445; 99213; G0463

== ENCOUNTER 2024-01-21 05:41 | Inpatient (IN) | payer MEDICAID, SELFPAY ==
--- NOTE | 2024-01-13 08:18 | EKG12_ITS ---
Test Reason : PRE OP Blood Pressure : / mmHG Vent. Rate : 095 BPM Atrial Rate : 095 BPM P-R Int : 154 ms QRS Dur : 086 ms QT Int : 342 ms P-R-T Axes : 058 066 052 degrees QTc Int : 429 ms Normal sinus rhythm Normal ECG Confirmed by BILLY ESPINAL, VY ([id number]), map editor MARY NELSON ([id number]) on 01/13/2024 1:26:41 PM Referred By: Joshua Cortez Confirmed By:VY CERVANTES MD
[2024-01-13 09:26] LABS: Absolute Lymphocyte Count 1.49 X10^3/uL (0.83-4.51); Absolute Neutrophil Count 3.3 X10^3/uL (2.0-7.7); Basophil# 0.03 X10^3/uL; Basophil% 0.5 % (0-1); Eosinophil# 0.11 X10^3/uL; Hemoglobin 14.4 g/dL (13.0-16.5); Lymphocyte # 1.49 X10^3/ul (0.83-4.51); Lymphocyte % 26.9 % (19-41); Mean Corp Hgb Conc 32.7 g/dL (32-36); Mean Corpuscular Hgb 28.8 pg (27.0-32.0); Mean Platelet Vol. 10.2 fl (6.2-12.0); Monocyte# 0.58 X10^3/uL; Monocyte% 10.5 % (0-10); NRBC Flagged by Analyzer 0 % (0-5); Neutrophil % 59.7 % (47-70); Platelet Count 302 K/mm3 (150-450); RBC Distribution Width CV 13.2 % (11.6-14.6); RBC Distribution Width SD 42.5 fl (35.1-43.9); White Blood Count 5.5 K/mm3 (4.4-11.0)
[2024-01-13 09:49] LABS: Anion Gap 6 (5-15); BUN 15 mg/dL (7-18); BUN/Creat Ratio 13.2 RATIO (10-20); Calcium,Total 9.8 mg/dL (8.5-10.1); Chloride 105 mmol/L (98-107); Creatinine, Serum 1.14 mg/dL (0.70-1.30); EST Glomerular Filtration Rate 71 mL/min (>60); Est Glom Filt Rate - Afr Amer 86 mL/min (>60); Glucose 106 mg/dL (74-106); Potassium 4.8 mmol/L (3.5-5.1); Sodium Level 139 mmol/L (136-145)
[2024-01-13 10:14] LABS: Magnesium 1.8 mg/dL (1.6-2.6)
[2024-01-13 10:25] LABS: HIV - WCH Non-Reactive (Nonreactive); Hepatitis B Surface Antibody Non-Reactive; Hepatitis C Antibody Non-Reactive (Nonreactive)
[2024-01-13 11:57] LABS: Hemoglobin A1c 7.8 % (3.8-5.6)
[2024-01-14 05:07] LABS: Hepatitis A AB, Total Negative (Negative)
[2024-01-21] VITALS (18 sets, daily range): BP systolic 116–158; BP diastolic 61–106; PULSE 69–99; RESP 14–18; TEMP 36.1–37; O2SAT 88–99; BMI 33.1; BMI 33.3
[2024-01-21 07:00] LABS: Bedside Glucose 234 mg/dL (74-106)
[2024-01-21] MEDS: dexAMETHasone 10 MG/ML Vial 8 MG IV (07:03)
[2024-01-21] MEDS: Acetaminophen 500 MG Tablet 1000 MG PO (07:03)
[2024-01-21] MEDS: Magnesium 2 GM for ERAS IV (07:04)
[2024-01-21] MEDS: Lactated Ringers 1,000 ML 15 ML IV (07:04)
[2024-01-21] MEDS: Insulin Lispro 100 UNIT/ML INSULN.PEN SC ×3 (07:05→21:42)
--- NOTE | 2024-01-21 07:15 | PRE.ANES_ITS ---
ASA Classification* ASA Classification ASA Classification: 2 Assessment & Plan Anesthesia* Anesthesia Assessment Anesthesia Assessment: Discussed sedation and/or anesthesia options, risks, benefits, and alternatives with patient/parents/legal guardian/POA. Questions invited. The patient/parents/legal guardian/POA seems to understand and agrees to proceed with anesthesia plan. Reviewed the physical assessment, medical history, allergy history and patient home medications list prior to surgery/procedure/anesthetic and documented any changes. Performed airway and anesthesia risk assessments. Anesthesia Type Anesthesia Type: General Anesthesia Focused Assessment* Temperature: 98.6 F Pulse Rate: 90 Blood Pressure: 116/61 Respiratory Rate: 16 Pulse Ox: 96 Airway Assessment Mouth opens: >3 cm Mallampati Score: II Focused Labs Anesthesia Preop lab: CBC WBC 5.5 K/mm3 (4.4-11.0) 01/13/24 08:36 RBC 5.00 M/mm3 (4.6-6.2) 01/13/24 08:36 Hgb 14.4 g/dL (13.0-16.5) 01/13/24 08:36 Hct 44.0 % (40-54) 01/13/24 08:36 Plt Count 302 K/mm3 (150-450) 01/13/24 08:36 CHEMISTRY Potassium 4.8 mmol/L (3.5-5.1) 01/13/24 08:36 Sodium 139 mmol/L (136-145) 01/13/24 08:36 Magnesium 1.8 mg/dL (1.6-2.6) 01/13/24 08:35 BUN 15 mg/dL (7-18) 01/13/24 08:36 Creatinine 1.14 mg/dL (0.70-1.30) 01/13/24 08:36 Glucose 106 mg/dL (74-106) 01/13/24 08:36 POC Glucose 234 mg/dL (74-106) H 01/21/24 06:32 TSH 1.32 uIU/mL (0.358-3.74) 09/26/23 11:06 COAG Pre-Assessment Diagnosis/Proposed Procedure Planned Operative Procedure(s): ANTERIOR CERVICAL DISC FUSION C4-5 C5-6 C6-7 POSS C5 CARCPECTOMY Anesthesia History 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 When Was Last Pacemaker Check QUESTION #4 FULL TEXT: You/Your Family Experience fever (hyperthermia) with Anesthesia Last Oral Intake Last Oral intake: Last Oral Intake NPO since 04:10 01/21/24 06:52 Meds taken in AM with sips of No 01/21/24 06:52 water? Meds patient instructed to take am of surgery PONV PONV - marketing area manager: PONV - marketing area manager Female No 01/08/24 12:10 HX of Motion Sickness No 01/08/24 12:10 HX of N/V After Surgery No 01/08/24 12:10 Non-Smoker Yes 01/08/24 12:10 Duration of Surgery greater Yes 01/08/24 12:10 than 60 minutes Number of Risk Factors 2 01/08/24 12:10 PONV Score Moderate Risk 01/08/24 12:10 Height & Weight Height & Weight: Anesthesia: Height & Weight Height 6 ft 1 in 01/21/24 06:52 Weight: 114 kg 01/21/24 06:52 Body Mass Index (BMI) 33.1 01/21/24 06:52 Respiratory Assessment Respiratory Assessment - marketing area manager: Respiratory Tract Infection Hx - marketing area manager Hx Respiratory Tract Infection No 01/08/24 12:10 STOP Sleep Apnea STOP Sleep Apnea - marketing area manager: STOP Sleep Apnea - marketing area manager Hx Hypertension Yes: CONTROLLED WITH MED 01/08/24 12:10 Hx Sleep Apnea No 01/08/24 12:10 CPAP BIPAP Do you snore loudly (louder No 01/08/24 12:10 than talking or can be heard Do you often feel tired/ No 01/08/24 12:10 fatigued/ sleepy during daytime? Has anyone observed you stop No 01/08/24 12:10 breathing during sleep? STOP Results Negative 01/08/24 12:10 QUESTION #5 FULL TEXT : Do you snore loudly (louder than talking or can be heard through closed doors)? 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 Specify any problems Hx of Preganancy in last 3 N/A 01/08/24 12:10 Months Nurse Filling Out Transfusion DSCHRIBER 01/08/24 12:10 & Questions: Date: 01/08/24 01/08/24 12:10 Time: 12:11 01/08/24 12:10 Patient unable to answer at this time (ie. confused, unrespo /Reproduction History /Reproductive History - marketing area manager: /Reproductive Hx- marketing area manager Hx Now No 01/08/24 12:10 Gestational Age (in weeks): EDC: Hx Hx Para Hx Section SAB No 01/08/24 12:10 Active Medications Active Medications: Current Medications Generic Name Dose Route Start Last Admin Trade Name Bandra PRN Reason Stop Dose Admin Acetaminophen 1,000 mg 01/21/24 08:00 01/21/24 07:03 Acetaminophen 500 Mg Tablet PO 01/21/24 08:01 1,000 mg X1 ONE Administration Dexamethasone Sodium Phosphate 8 mg 01/21/24 08:00 01/21/24 07:03 Dexamethasone 10 Mg/Ml Vial IV 01/21/24 08:01 8 mg PREOP ONE Administration Cefazolin Sodium 2 gm/ Sodium 110 mls @ 150 mls/hr 01/21/24 08:00 Chloride IV 01/21/24 08:43 PREOP ONE Magnesium Sulfate 2 gm/ 104 mls @ 208 mls/hr 01/21/24 08:00 01/21/24 07:04 Dextrose IV 01/21/24 08:29 208 mls/hr X1 ONE Administration Lactated Ringer's 1,000 mls @ 15 mls/hr 01/21/24 06:15 01/21/24 07:04 IV 15 mls/hr .Q48H KALIE Administration Insulin Human Lispro 1 - 6 unit 01/21/24 08:00 01/21/24 07:05 Insulin Lispro 100 Unit/Ml Insuln.Pen SC 2 units Q4H PRN PRN Administration BG>/= 180, SEE PROTOCOL Protocol PFSH Medical History Wears glasses Depression Alcohol use Insulin dependent diabetes mellitus Migraine headache Injury of head and neck Syncope Dietary restriction Non-smoker History of stress test Leg cramps Hypertension Calcific tendonitis of left shoulder Left shoulder pain Right shoulder pain Home Medications ?Medication ?Instructions ?Recorded ?Last Taken ?Type insulin glargine 100 unit/mL (3 64 unit subcut QHS diabetes 10/09/23 01/20/24 History mL) subcutaneous pen (Lantus Solostar U-100 Insulin) lisinopril 10 mg tablet 30 mg PO DAILY htn 10/09/23 01/20/24 History metformin 1,000 mg tablet 1,000 mg PO BID diabetes 10/09/23 01/20/24 History dulaglutide 0.75 mg/0.5 mL 1.5 mg subcut SA diabetes 01/08/24 01/10/24 History subcutaneous pen injector (Trulicity) Allergy/AdvReac Type Severity Reaction Status Date / Time coconut Allergy Other Verified 01/21/24 06:48 diphenhydramine Allergy Other Verified 01/21/24 06:48 Family History Mother CVA (cerebral vascular accident) Diabetes Surgical History History of toe surgery Hx of shoulder surgery Social History household members: spouse and children Smoking Status: Never smoker alcohol intake: current alcohol intake frequency: holidays/special occasions only Alcohol type: wine Review of Systems (Anesthesia) ROS Narrative System reviewed and no additional complaints, except as documented.
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
[2024-01-21] MEDS: Cefazolin 2 GM in 0.9% Normal Saline (100mL Bag) 100 ML IV ×3 (08:00→21:44)
--- NOTE | 2024-01-21 08:10 | RAD_ITS ---
STUDY: X-RAY - CERVICAL SPINE REASON FOR EXAM: Male, 54 years old. Intraoperative digital documentation views of the anterior fusion TECHNIQUE: 11 intraoperative digital view(s) of the cervical spine were obtained. COMPARISON: Cervical spine x-rays dated October 09, 2023 FINDINGS: 11 intraoperative digital documentation images show changes of anterior fusion at C5-6 and C6-7. RAD/Cerv Spine 2 or 3 Views IMPRESSION: Intraoperative digital documentation views. Electronically Signed: Fredo Avelar MD at 12:15 EDT ,
[2024-01-21 11:24] LABS: Bedside Glucose 196 mg/dL (74-106)
[2024-01-21 11:24] LABS: Bedside Glucose 167 mg/dL (74-106)
--- NOTE | 2024-01-21 11:24 | OP.PCM_ITS ---
Report of Operation Date of Procedure: 01/21/24 Description of Surgical Findings:: Preoperative diagnosis: C4-5 disc herniation with inferior migration, C4-7 disc degeneration with stenosis, myelopathy Postoperative diagnosis: Same Name of procedure: C4-7 anterior cervical discectomy and fusion with plate instr umentation - Anterior cervical fusion C4-5, CPT code 66327 - Anterior plate instrumentation C4-7, CPT code 18176/59 - Anterior cervical fusion C5-6, CPT code 93199/51 - Anterior cervical fusion C6-7, CPT code 65495/51 -C4-5 structural allograft bone with DBX, CPT code 41762 -C5-6 structural allograft bone with DBX, CPT code 32241 -C6-7 structural allograft bone with DBX, CPT code 07383 Attending surgeon: Joshua Cortez M.D. Anesthesia: Gen. endotracheal Estimated blood loss: 25 mL Complications: None Instrumentation used: Medtronic Broussard Elite plate, LASR corticocancellous block Indications: The patient is a pleasant 54-year-old gentleman who presented with neck pain, bilateral upper extremity weakness, worsening difficulty with dexterity and balance. MRI showed C4-5 disc herniation with inferior migration, C4-7 disc degeneration with stenosis. In order to halt the progression of myelopathy, the patient requested surgical treatment. All risks and benefits of the procedure were explained to the patient. The risks include but are not limited to infection, bleeding, injury to nerves and vessels, vertebral artery injury, spinal cord injury, paralysis, vocal cord paralysis, injury to esophagus, pseudoarthrosis, need for further procedures, adjacent segment degeneration. Procedure: The patient was identified in the preoperative suite using unique patient identifiers. Skin was marked consent was taken and all questions were answered. The patient was then brought back to the operative room and a timeout was performed. General endotracheal anesthesia was given. Intraoperative neuro monitoring leads were applied. The patient was carefully positioned supine on a regular OR table. A lateral view with a C-arm was done to identify the level and to define the incision. The anterior neck was then prepped and draped in the usual fashion. A final timeout was then performed. A transverse skin incision was taken to the left of midline. Subcutaneous tissue was then divided with Bovie. Platysma was identified and cut along the incision with scissors. The fascial interval between the sternocleidomastoid and the larynx was developed. Omohyoid was identified and retracted. The esophagus with the larynx was retracted medially to reach the prevertebral fascia. Marker x-ray was performed with bent spinal needle and disc space and levels were confirmed. Longus coli muscle was elevated on both sides at and above and below C4-7 discs. Self-retaining retractors were then placed. A long handle knife was then used to perform annulotomy at C4-5. Disc fragments were removed with the pituitary. [place]ield pins were placed in C4 and C5 for disc distraction. Curettes and bur was utilized to remove cartilage from the endplates. Discectomy was performed laterally up to the uncovertebral joints. Posterior osteophytes were thinned down with the bur and adequate decompression in the central and foraminal areas were performed and PLL was thinned out. Superior portion of the C5 posterior endplate was burred down more on the left paracentral region and a long ball- tipped nerve hook was utilized to remove disc fragments from behind the C5 vertebral body. Irrigation was performed and additional fragments were removed. Once adequate amount of fragments were removed which seem to be consistent with the MRI picture, thorough irrigation was again given. Once the disc space was prepared, trials of various sizes were utilized. The retractors were then repositioned and the procedure was repeated for C5-6 and C6-7 discs with complete discectomy and foraminotomy. At the C5-6 disc the C5 inferior posterior endplate was burred and a nerve hook was passed superiorly to check for additional disc fragments behind the C5 vertebral body. A decision was then made to avoid the corpectomy and do a multilevel ACDF. 6 mm LASR cortical cancellous allograft bone large footprint was then fashioned in such a way that concavities were burred out inferiorly and superiorly and half cc of DBX (demineralized bone matrix) was squeezed into the cancellous portion. The graft was then inserted into the C6-7 disc space. Graft sizes were 6 mm at with large footprint at C5-6, and 7 mm with large footprint at C4- 5. The grafts were found to be in good apposition with good pullout strength. A 62 mm Medtronic Broussard Elite plate was then fixed to C4-7 with 16 mm screws. A lateral x-ray was then taken to check the length of the screws. Both AP and lateral x-rays showed good positioning of plate and screws. The locking mechanism over the screw heads was then turned. Thorough irrigation was again given. Hemostasis was achieved. A Fairplay drain was then inserted. Closure was done with 3-0 Vicryl for the platysma and subcutaneous tissue layers and 4-0 Monocryl for the skin. Closure was done around the drain. Steri-Strips were applied and dressing was done with 4 x 4 gauze and Tegaderm. A cervical collar was then applied. The patient was then woken up from anesthesia extubated and taken to PACU in stable condition. From here, the patient will be transitioned to the floor. Intraoperative neuro monitoring was performed throughout this procedure. Motor evoked potentials were run periodically. All potentials remained at baseline throughout the procedure. I was present for the entire surgery and performed the surgery myself. Surgeon: Joshua Cortez medical art therapist: Jimena Hall Admit VTE Documentation VTE Mechan Device Prophylaxis: SCD's Procedures Musculoskeletal [id number]: Other Procedure See Report
[2024-01-21 12:09] LABS: Bedside Glucose 218 mg/dL (74-106)
--- NOTE | 2024-01-21 12:20 | PCM.POST.ANE ---
Anesthesia: Postop Eval I Current Vital Signs Temperature: 96.9 F Pulse Rate: 69 Blood Pressure: 141/79 Respiratory Rate: 14 Pulse Ox: 94 Oxygen Delivery Method: Nasal Cannula Oxygen Flow Rate (L/min): 4 Fraction of Inspired Oxygen (FIO2): 34 EtCo2 (Normal 35-45 , high quality CPR 10-20 & ROSC>/=40mmHg): 41 Assessment Airway patent: Yes Spontaneous unlabored respirations: Yes Mental status: Calm nausea: No Vomiting: No Anesthesia Complication: No Fluid Hydration Crystalloid volume administer (ml): 1,200 Total IV fluid infused: 1,200 Progress Note Anesthesia document: Postop Eval 1 completed: Yes
--- NOTE | 2024-01-21 12:36 | POSTOPAN2_ITS ---
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 Spontaneous unlabored Yes 01/21/24 12:21 VOTATOR MACHINE OPERATOR.MDOT respirations Mental status Calm 01/21/24 12:21 VOTATOR MACHINE OPERATOR.MDOT nausea No 01/21/24 12:21 VOTATOR MACHINE OPERATOR.MDOT Vomiting No 01/21/24 12:21 VOTATOR MACHINE OPERATOR.MDOT Anesthesia Postop Eval I: Fluid Summary Crystalloid volume administer 1,200 01/21/24 12:21 VOTATOR MACHINE OPERATOR.MDOT (ml) Colloids volume administered ( ml) Blood Product volume administered (ml) Total IV fluid infused 1,200 01/21/24 12:21 VOTATOR MACHINE OPERATOR.MDOT Anesthesia Postop Eval I: Summary Notes Anesthesia Complication No 01/21/24 12:21 VOTATOR MACHINE OPERATOR.MDOT Anesthesia Complication Comment: Post-operative progress note Anesthesia: Postop Eval II Evaluation Mental status: Awake and Apprehensive Pain Level: 3 nausea: No Vomiting: No
--- NOTE | 2024-01-21 12:36 | PCM.POSTANE2 ---
Anesthesia Postop Eval I Sum Postop Eval Completion status Anesthesia document: Postop Eval 1 completed: Yes Anesthesia Postop Eval I Summary Anesthesia Postop Eval I Summary: Anesthesia Postop Eval I: Assessment Summary Airway patent Yes 01/21/24 12:[address]MDOT Spontaneous unlabored Yes 01/21/24 12:[address]MDOT respirations Mental status Calm 01/21/24 12:[address]MDOT nausea No 01/21/24 12:[address]MDOT Vomiting No 01/21/24 12:[address]MDOT Anesthesia Postop Eval I: Fluid Summary Crystalloid volume administer 1,200 01/21/24 12:[address]MDOT (ml) Colloids volume administered ( ml) Blood Product volume administered (ml) Total IV fluid infused 1,200 01/21/24 12:[address]MDOT Anesthesia Postop Eval I: Summary Notes Anesthesia Complication No 01/21/24 12:[address]MDOT Anesthesia Complication Comment: Post-operative progress note Anesthesia: Postop Eval II Evaluation Mental status: Awake and Apprehensive Pain Level: 3 nausea: No Vomiting: No
[2024-01-21] MEDS: dexAMETHasone 4 MG/ML Vial IV ×2 (13:20→18:09)
[2024-01-21] MEDS: Lactated Ringers 1,000 ML 100 ML IV ×2 (14:35→21:44)
[2024-01-21] MEDS: Ketorolac 15 MG/ML Vial IV ×2 (18:07→21:42)
[2024-01-21] MEDS: Methocarbamol 500 MG Tablet 1000 MG PO ×2 (18:07→21:44)
[2024-01-21] MEDS: metFORMIN HCl 1,000 MG Tablet 1000 MG PO (18:08)
[2024-01-21 18:35] LABS: Bedside Glucose 284 mg/dL (74-106)
--- NOTE | 2024-01-21 19:15 | PCM.CONS.GEN ---
Assessment & Plan Assessment/Plan (1) Type 2 diabetes mellitus with diabetic polyneuropathy: QUALIFIERS: Diabetes mellitus [facility] insulin use: with terminal makeup operator use Qualified Code(s): E11.42 - Type 2 diabetes mellitus with diabetic polyneuropathy; Z79.4 - halfway (current) use of insulin (2) Hyperglycemia: (3) Adverse drug reaction: QUALIFIERS: Encounter type: initial encounter Qualified Code(s): T50.905A - Adverse effect of unspecified drugs, medicaments and biological substances, initial encounter PLAN: Plan 1. Iatrogenic Hyperglycemia due to IV Decadron in the setting of chronic diabetes mellitus type 2 with recent hemoglobin A1c of 7.8% - Continue home Lantus 64 units every p.m. along with highest intensity sliding scale. Goal of 180 mg/dL in a diabetic on steroids after recent cervical fusion will not be easily obtained. Nevertheless, we will try to wean steroids and increase insulin regimen to aim for this goal. 2. Essential hypertension - Resume lisinopril as previous. 3. DVT prophylaxis - As per orthopedist. Thank you for allowing us to participate in the care of your patient. HPI Consult Data Date of Consult: 01/22/24 HPI Narrative Reason for Consultation: Diabetes Management. HPI Narrative: KVNG ZURITA, is a 54 M with a past medical history of essential hypertension, obesity; with BMI of 33.3 this admission, DM-2; of relatively well-controlled on Lantus, Trulicity and Metformin with a recent HgbA1c 7.8% and OA; with recent admission to the orthopedic-spine service of Dr. Cortez who underwent Anterior Cervical Disc Fusion C4-C5, C5-C6 & C6-C7 with patient POD#0 and as part of his treatment he was started on scheduled IV Decadron with resultant iatrogenic Hyperglycemia of 284 mg/dL prompting consultation of the hospitalist service for diabetes management with RN reporting that orthopedic surgeon has set a target of ~180 mg/dL. Mr. Zurita was already restarted on his home dose of Lantus 64 units sq q. PM and now we have ordered the highest-intensity SSI with FSBS q. AC/HS. There is no complaint of fever, chills, nausea, vomiting, abdominal pain, chest pain, SOB or uncontrolled pain after surgery. He is closely monitoring his blood glucose graph on his phone. Thank you for allowing us to participate in the care of your patient. [facility] Medical History Wears glasses Depression Alcohol use Insulin dependent diabetes mellitus Migraine headache Injury of head and neck Syncope Dietary restriction Non-smoker History of stress test Leg cramps Hypertension Calcific tendonitis of left shoulder Left shoulder pain Right shoulder pain Home Medications ?Medication ?Instructions ?Recorded ?Last Taken ?Type insulin glargine 100 unit/mL (3 64 unit subcut QHS diabetes 10/09/23 01/20/24 History mL) subcutaneous pen (Lantus Solostar U-100 Insulin) lisinopril 10 mg tablet 30 mg PO DAILY htn 10/09/23 01/20/24 History metformin 1,000 mg tablet 1,000 mg PO BID diabetes 10/09/23 01/20/24 History dulaglutide 0.75 mg/0.5 mL 1.5 mg subcut SA diabetes 01/08/24 01/10/24 History subcutaneous pen injector (Trulicity) Allergy/AdvReac Type Severity Reaction Status Date / Time coconut Allergy Other Verified 01/21/24 06:48 diphenhydramine Allergy Other Verified 01/21/24 06:48 Family History Mother CVA (cerebral vascular accident) Diabetes Surgical History History of toe surgery Hx of shoulder surgery Social History household members: spouse and children Smoking Status: Never smoker alcohol intake: current alcohol intake frequency: holidays/special occasions only Alcohol type: wine ROS ROS Narrative Review of Systems: General: Patient denies fever or chills HENT: Denies headache, denies stuffy nose, denies sore throat EYES: Denies changes in vision Resp: Denies cough, denies shortness of breath Cardiac: Denies chest pain, palpitations or heart racing. GI: Denies abdominal pain, denies changes in bowel, denies nausea or vomiting : Denies changes in urination Extremity: Denies swelling Musculoskeletal: Patient denies arthralgias or myalgias. Neuro: Patient denies headache, paresthesias or focal neurologic deficits. Heme: Denies any bleeding or bruising Skin: Denies rashes Psychiatric: No complaints voiced related uncontrolled depression or anxiety. Endocrine: Patient admits to persistent hyperglycemia since being started on steroids. The rest of the 14 point ROS was negative except for positives in HPI. Physical Exam Const alert, oriented x3, no apparent distress and healthy appearing General Appearance: cooperative HEENT normocephalic, head/scalp atraumatic, hearing grossly normal bilaterally and moist oral mucous membranes HEENT Narrative: Rigid cervical collar in place with evidence of recent anterior cervical spinal fusion. Eyes PERRL and EOMs intact bilaterally Neck no lymphadenopathy and supple Neck Narrative: Patient has evidence of recent cervical fusion with anterior approach. Resp normal respiratory effort, no retractions, no use of accessory muscles and clear to auscultation bilaterally Cardio regular rate and regular rhythm GI normal to inspection, nondistended, normoactive bowel sounds, soft to palpation, non-tender and non-distended Extremity normal to inspection, full ROM and no clubbing, cyanosis or edema Skin Skin Narrative: Patient has no evidence of rash, abscess or jaundice. Neuro oriented x3, CN's II-XII intact bilaterally, moves all extremities, no focal motor deficits and no sensory deficits noted Sensorium / Orientation: awake, alert, oriented to person, oriented to place and oriented to time Speech: speech normal Psych affect normal Medical Records Data Attestation: I reviewed the patient's medical records Lab / Micro Data Attestation: I reviewed the patient's lab results. 01/13/24 08:36 01/13/24 08:36 Labs: Laboratory Results - last 24 hr 01/21/24 06:32: POC Glucose 234 H 01/21/24 08:13: POC Glucose 196 H 01/21/24 10:11: POC Glucose 167 H 01/21/24 11:51: POC Glucose 218 H 01/21/24 18:16: POC Glucose 284 H Imaging Radiology Impression Cervical Spine X-Ray 01/21/24 08:10 IMPRESSION: Intraoperative digital documentation views. Electronically Signed: Fredo Avelar MD at 12:15 EDT , Charges/Coding Visit Charges Inpatient E&M: 68382 Init Hosp L1
[2024-01-21] MEDS: Insulin Glargine-YFGN 100 UNIT/ML Pen 64 UNIT SC (21:36)
[2024-01-21] MEDS: HYDROcodone Bitartrate/Apap 5/325 Tablet PO (21:43)
[2024-01-21] MEDS: Senna/Docusate Sodium 1 Tablet 2 TABLET PO (21:45)
[2024-01-21 22:21] LABS: Bedside Glucose 352 mg/dL (74-106)
[2024-01-22] MEDS: dexAMETHasone 4 MG/ML Vial 2 MG IV ×2 (01:30→06:51)
[2024-01-22 04:36] VITALS: BP 134/87; PULSE 87; RESP 18; TEMP 36.7; O2SAT 95
[2024-01-22 04:36] LABS: Bedside Glucose 289 mg/dL (74-106)
[2024-01-22] MEDS: Insulin Glargine-YFGN 100 UNIT/ML Pen 20 UNIT SC (04:37)
[2024-01-22] MEDS: Insulin Lispro 100 UNIT/ML INSULN.PEN SC ×3 (04:38→11:33)
[2024-01-22] MEDS: Ketorolac 15 MG/ML Vial IV (06:53)
--- NOTE | 2024-01-22 07:00 | RAD_ITS ---
STUDY: X-RAY - CERVICAL SPINE REASON FOR EXAM: Male, 54 years old. S/p cervical fusion -- upright AP and LAT TECHNIQUE: 2 view(s) of the cervical spine were obtained. COMPARISON: Comparison is made with prior study dated January 21, 2024 and October 09, 2023. FINDINGS: Normal anterior atlantoaxial articulation. Normal odontoid process. There is straightening of the normal cervical lordosis. The patient is status post anterior fusion at the C4-C5, C5-C6 and C6-C7 levels with prosthetic disc placement. Normal visualized intervertebral neuroforamina. The soft tissue structures are unremarkable. RAD/Cerv Spine 2 or 3 Views IMPRESSION: Status post anterior fusion at the C4-C5, C5-6 and C6-C7 levels with prosthetic disc placement. Electronically Signed: Amado Diego MD at 11:58 EDT ,
[2024-01-22 07:18] LABS: Bedside Glucose 210 mg/dL (74-106)
[2024-01-22 07:22] LABS: Hemoglobin 12.4 g/dL (13.0-16.5); Mean Corp Hgb Conc 32.6 g/dL (32-36); Mean Corpuscular Hgb 28.6 pg (27.0-32.0); Mean Corpuscular Volume 87.6 fL (80-94); Mean Platelet Vol. 9.9 fl (6.2-12.0); Platelet Count 306 K/mm3 (150-450); RBC Distribution Width CV 13.2 % (11.6-14.6); RBC Distribution Width SD 42.5 fl (35.1-43.9); Red Blood Count 4.34 M/mm3 (4.6-6.2); White Blood Count 10.7 K/mm3 (4.4-11.0)
[2024-01-22] MEDS: HYDROcodone Bitartrate/Apap 5/325 Tablet PO ×2 (07:43→13:49)
[2024-01-22 07:45] LABS: Anion Gap 7 (5-15); BUN 28 mg/dL (7-18); BUN/Creat Ratio 24.3 RATIO (10-20); Calcium,Total 9.5 mg/dL (8.5-10.1); Chloride 104 mmol/L (98-107); Creatinine, Serum 1.15 mg/dL (0.70-1.30); EST Glomerular Filtration Rate 70 mL/min (>60); Est Glom Filt Rate - Afr Amer 85 mL/min (>60); Estimated Creatinine Clearance 94.61 ml/min; Glucose 228 mg/dL (74-106); Potassium 4.7 mmol/L (3.5-5.1); Sodium Level 135 mmol/L (136-145)
[2024-01-22] MEDS: metFORMIN HCl 1,000 MG Tablet 1000 MG PO (07:46)
[2024-01-22] MEDS: Methocarbamol 500 MG Tablet 1000 MG PO ×3 (07:46→13:49)
[2024-01-22] MEDS: Lisinopril 10 MG Tablet 30 MG PO (10:33)
[2024-01-22 10:36] VITALS: BP 139/86; PULSE 88; RESP 18; TEMP 36.8; O2SAT 95
--- NOTE | 2024-01-22 12:05 | CASEMGMT ---
SARTHAK WILLIS Assessment Face to Face with patient for initial transition planning/care coordination assessment. SARTHAK WILLIS introduced self and role at [facility], pt voices understanding. Pt is A&Ox4 and is resting comfortably in chair and is calm. Care providers, pharmacy, and demographics verified. Admitting dx: Anterior Cervical Fusion C4-5, C5-6, & C6-7 LACE Strata: 2 PCP: Lauren Carmona Specialists: Diego (Ortho), Endocrinology through [facility] Preferred Pharmacy: [facility] Insurance: [facility]/ [facility] Prescription Benefit: Yes LNOK: Kimmy Coley (W), Javier (Son) Living Arrangements: Pt lives with his family including his , son Javier (Age 22) and Kimmy's 2 kids (ages 12 and 14) in a 2 story home with a FFSU and 2 steps to enter with a handrail. ADLs/IADLs: States ind Transportation: Self, . Denies concerns DME: [employer] and supplies. C-collar. BP Monitor. Pulse Ox. Pt states that he recently ordered a copy and print associate and a cane off of [employer] and denies further DME needs at this time HHC/SNF: Denies Hx or needs [facility]: Pt has a Hx at the [facility] and was discharged by Dr. Ev abdi 1 month ago Pt?s goal: Home Plan: Home with the continuation of OP Therapy. Pt states that he is active with OP PT at [facility]. Pt states that he plans to f/u with Dr. Cortez in a couple weeks and then resume this OP Tx subsequently. Pt denies the need for a new Rx for this. Pt denies further needs at this time. Lindsey Negron RN, CM
[2024-01-22 12:09] LABS: Bedside Glucose 290 mg/dL (74-106)
[2024-01-22 12:27] VITALS: BP 102/68; PULSE 90; RESP 18; TEMP 36.7; O2SAT 98
--- NOTE | 2024-01-22 12:28 | PCM.PN.ORT ---
Subjective Subjective Seen with Dr. Cortez. Patient was sitting upright in chair upon arrival with his cervical collar on. He says that he is doing well after surgery and feels that some of his presurgical symptoms such as headaches and shoulder pain has improved. His pain is well managed. He has walked with PT and is cleared for discharge from their end. Drain and gauze was removed. New gauze and tegaderm was placed. He is tolerating eating well with no dysphagia noted. Objective Data Objective Data Vital Signs: Vital Signs Temp Pulse Resp BP Pulse Ox O2 Del Method O2 Flow Rate 98.3 F 88 18 139/86 H 95 Room Air 4 01/22/24 10:36 01/22/24 10:36 01/22/24 10:36 01/22/24 10:36 01/22/24 10:36 01/22/24 10:36 01/21/24 16:48 FiO2 34 01/21/24 12:21 Oxygen Flow Rate (L/min) 4 Oxygen Delivery Method Room Air Weight: 251 lb 5.231 oz Body Mass Index (BMI) 33.3 Intake & Output: Intake and Output for Last 24 Hours 01/20/24 01/21/24 01/22/24 23:59 23:59 23:59 Intake Total 2369.25 / 2369.25 Output Total 1100 / 1100 Balance 2369.25 / 2369.25 -1100 / -1100 Lab / Micro Data 01/22/24 06:40 01/22/24 06:40 Labs: Laboratory Results - last 24 hr 01/21/24 18:16: POC Glucose 284 H 01/21/24 21:33: POC Glucose 352 H 01/22/24 04:16: POC Glucose 289 H 01/22/24 06:40: WBC 10.7, RBC 4.34 L, Hgb 12.4 L, Hct 38.0 L, MCV 87.6, MCH 28.6, MCHC 32.6, RDW Std Deviation 42.5, RDW Coeff of Bhumi 13.2, Plt Count 306, MPV 9.9, Sodium 135 L, Potassium 4.7, Chloride 104, Carbon Dioxide 24.0, Anion Gap 7, BUN 28 H, Creatinine 1.15, Estim Creat Clear Calc 94.61, Est GFR (MDRD) Af Amer 85, Est GFR (MDRD) Non-Af 70, BUN/Creatinine Ratio 24.3 H, Glucose 228 H, Calcium 9.5 01/22/24 06:49: POC Glucose 210 H 01/22/24 11:32: POC Glucose 290 H Micro: Microbiology 01/13/24 08:36 Swab (Method) Nasal Screen MRSA/MSSA - Final Radiography Diagnostic Testing: Radiology Impression Cervical Spine X-Ray 01/22/24 07:00 IMPRESSION: Status post anterior fusion at the C4-C5, C5-6 and C6-C7 levels with prosthetic disc placement. Electronically Signed: Amado Diego MD at 11:58 EDT , Physical Exam Narrative Patient in hard collar. Hard collar was removed to remove drain and gauze. Gauze was saturated with blood. New gauze and tegaderm were placed over incision. Hard collar was then placed back on. Neurological exam of the upper extremities shows 5x5 power. Normal sensation across all dermatomes. Const alert, oriented x3 and no apparent distress Assessment & Plan Assessment/Plan (1) S/P cervical spinal fusion: PLAN: Plan Patient ready for discharge. His pain has been well managed and he is ambulating with a walker and cleared home by PT. He will continue to wear the hard collar investment accountant until he is at least 2 weeks post op. Follow up appointment in clinic in 2 weeks.
== END 2024-01-22 14:27 | disposition home or self-care (01) | DRG 321 ==
LOC: ACINP 05:43 → MS3 13:31
PROVIDERS: Anesthesiology; Student in an Organized Health Care Education/Training Program; Admitting Provider Orthopaedic Surgery Orthopaedic Surgery of the Spine; Referring Provider Orthopaedic Surgery Orthopaedic Surgery of the Spine; Visit Provider Orthopaedic Surgery Orthopaedic Surgery of the Spine
PROC: 0RT30ZZ Resection of Cervical Vertebral Disc, Open Approach (ICD-10-PCS; CPT 22551; principal; 2024-01-21 07:30)
DX: M50.021 Cervical disc disorder at C4-C5 level with myelopathy (principal); E11.42 Type 2 diabetes mellitus with diabetic polyneuropathy; I10 Essential (primary) hypertension; E11.65 Type 2 diabetes mellitus with hyperglycemia; Z79.4 Long term (current) use of insulin; G56.03 Carpal tunnel syndrome, bilateral upper limbs; M48.02 Spinal stenosis, cervical region; G56.21 Lesion of ulnar nerve, right upper limb; Z79.85 Long-term (current) use of injectable non-insulin antidiabetic drugs; Z79.84 Long term (current) use of oral hypoglycemic drugs; T50.905A Adverse effect of unspecified drugs, medicaments and biological substances, initial encounter
CPT/HCPCS: 36415; 72040; 76000; 80048; 82962; 83036; 83735; 85025; 85027; 86703; 86706; 86708; 86803; 86850; 86900; 86901; 87081; 93005; 94668; 97162; 97530; C1713; J7120; J2405

== ENCOUNTER 2024-03-17 05:52 | Day surgery (SDC) | payer MEDICAID, SELFPAY ==
[2024-03-17] VITALS (9 sets, daily range): BP systolic 100–130; BP diastolic 77–89; PULSE 84–88; RESP 16; TEMP 35.5–36.6; O2SAT 92–98; BMI 34.0
[2024-03-17 07:03] LABS: Bedside Glucose 94 mg/dL (74-106)
[2024-03-17] MEDS: Cefazolin 2 GM in Syringe IV (07:42)
[2024-03-17] MEDS: Ropivacaine 0.5% 30 ML Vial (07:55)
[2024-03-17] MEDS: Lidocaine 1% (20 ml mdv) 20 ML Vial (07:55)
== END 2024-03-17 09:43 | disposition home or self-care (01) ==
LOC: SDC 05:52 → AC 05:53
PROVIDERS: PCP Family Medicine; Referring Provider Orthopaedic Surgery Orthopaedic Surgery of the Spine; Visit Provider Orthopaedic Surgery Orthopaedic Surgery of the Spine
PROC: (CPT 64721; principal; 2024-03-17 07:15)
DX: G56.03 Carpal tunnel syndrome, bilateral upper limbs (principal); E11.9 Type 2 diabetes mellitus without complications; Z79.4 Long term (current) use of insulin; G56.21 Lesion of ulnar nerve, right upper limb; I10 Essential (primary) hypertension; Z79.84 Long term (current) use of oral hypoglycemic drugs; Z98.1 Arthrodesis status; Z98.890 Other specified postprocedural states; Z79.899 Other long term (current) drug therapy
CPT/HCPCS: 64721; 01810; 82962; A4216; J2405